=== PATIENT | female | born 1950 ===

== ENCOUNTER 2021-08-08 09:22 | Outpatient (REF) | payer MEDICARE, MEDICAID, SELFPAY ==
--- NOTE | ~2021-08-08 | XR_ITS ---
EXAMINATION: XR KNEE, RIGHT XR KNEE, LEFT CLINICAL INFORMATION: Pain. COMPARISON: Most recent bilateral knee radiographs dated 10/21/2019 TECHNIQUE: AP, tunnel, lateral, and sunrise views of the right and left knee. FINDINGS: RIGHT KNEE: Pldjqhqw-ik-hlsgzw medial compartment joint space narrowing. Tricompartmental marginal osteophytes. No fracture or dislocation. Medial and lateral compartment chondrocalcinosis. Small joint effusion. LEFT KNEE: Pgirbysq-gb-psnuho medial compartment joint space narrowing. Tricompartmental marginal osteophytes. No fracture or dislocation. Medial and lateral compartment chondrocalcinosis. Small joint effusion. XR/XR knee RT 3V IMPRESSION: RIGHT KNEE: Tricompartmental osteoarthritis, most prominent within the medial compartment. Medial and lateral compartment chondrocalcinosis. Findings are not significantly changed. LEFT KNEE: Tricompartmental osteoarthritis, most prominent within the medial compartment. Medial and lateral compartment chondrocalcinosis. Findings are not significantly changed.
--- NOTE | ~2021-08-08 | XR_ITS ---
EXAMINATION: XR KNEE, RIGHT XR KNEE, LEFT CLINICAL INFORMATION: Pain. COMPARISON: Most recent bilateral knee radiographs dated 10/21/2019 TECHNIQUE: AP, tunnel, lateral, and sunrise views of the right and left knee. FINDINGS: RIGHT KNEE: Mlweqjte-qe-fbbsol medial compartment joint space narrowing. Tricompartmental marginal osteophytes. No fracture or dislocation. Medial and lateral compartment chondrocalcinosis. Small joint effusion. LEFT KNEE: Phafcbxa-xx-bhwoys medial compartment joint space narrowing. Tricompartmental marginal osteophytes. No fracture or dislocation. Medial and lateral compartment chondrocalcinosis. Small joint effusion. XR/XR knee LT 4V IMPRESSION: RIGHT KNEE: Tricompartmental osteoarthritis, most prominent within the medial compartment. Medial and lateral compartment chondrocalcinosis. Findings are not significantly changed. LEFT KNEE: Tricompartmental osteoarthritis, most prominent within the medial compartment. Medial and lateral compartment chondrocalcinosis. Findings are not significantly changed.
--- NOTE | ~2021-08-08 | XR_ITS ---
EXAMINATION: XR LUMBOSACRAL SPINE CLINICAL INFORMATION: Pain low back. COMPARISON: MRI lumbar spine 09/24/2016. TECHNIQUE: Three views of the lumbosacral spine. FINDINGS: There is normal lumbar lordosis. The vertebral heights and alignment is normal. There is loss of L1-L2 and T12-L1 disc heights with mild ventral spondylosis. Mild spondylosis seen at other lumbar disc levels. No visible acute fracture, dislocation or subluxation seen. The SI joints are symmetrical and normal. The soft tissues are normal. XR/XR lumbar spine 2-3V IMPRESSION: Mild degenerative disc changes L1-L2 disc level with moderate spondylosis. In addition there is mild spondylosis at the rest of the lumbar disc levels. No acute fracture or lytic process seen.
--- NOTE | ~2021-08-08 | XR_ITS ---
EXAMINATION: XR CHEST CLINICAL INFORMATION: Lower back pain. Shortness of breath. COMPARISON: Chest radiograph dated 03/13/2018 TECHNIQUE: 2 views of the chest were obtained. FINDINGS: The lungs are clear. The cardiomediastinal silhouette is normal in size. There is no pleural effusion or pneumothorax. No acute osseous abnormality. XR/XR chest 2V IMPRESSION: No acute cardiopulmonary findings.
== END 2021-08-08 09:23 | disposition home or self-care (01) ==
LOC: HO.XRAY 09:22
PROVIDERS: PCP Internal Medicine Geriatric Medicine; Visit Provider Internal Medicine Geriatric Medicine
DX: M25.561 Pain in right knee (principal); M25.562 Pain in left knee; M54.5 Low back pain; R06.02 Shortness of breath
CPT/HCPCS: 71046; 72100; 73562; 73564

== ENCOUNTER 2022-03-01 15:01 | Outpatient (REF) | payer MEDICARE, MEDICAID, SELFPAY ==
[2022-03-01 15:30] LABS: COVID-19 Test Negative (Negative)
== END 2022-03-01 15:02 | disposition home or self-care (01) ==
LOC: HO.LAB 15:01
PROVIDERS: Visit Provider Internal Medicine
DX: Z20.822 Contact with and (suspected) exposure to COVID-19 (principal)
CPT/HCPCS: 87635; C9803

== ENCOUNTER 2022-05-23 11:02 | Outpatient (REF) | payer MEDICARE, MEDICAID, SELFPAY ==
--- NOTE | ~2022-05-23 | XR_ITS ---
EXAMINATION: XR KNEE, RIGHT XR KNEE, LEFT CLINICAL INFORMATION: Bilateral osteoarthritis. COMPARISON: Bilateral knee radiographs 08/08/2021. TECHNIQUE: Each knee is imaged in 4 views. There are total of 8 views. FINDINGS: Right: There is tricompartment osteoarthritis, greatest medial compartment with joint narrowing and mild secondary genu varus. No erosive change. There is chondrocalcinosis medial and lateral menisci. Small suprapatellar effusion is present. Hoffa's fat pad appears normal. There is mild spurring at the quadriceps insertion patella. No lateralization or tilting patella. No fracture, dislocation, or destructive process. Left: There is tricompartment osteoarthritis, greatest medial knee joint compartment with joint narrowing and mild secondary genu varus. Narrowing is greater on the right. There is chondrocalcinosis involving the medial and lateral menisci. No erosive change. Trace suprapatellar effusion. Hoffa's fat pad appears normal. No lateralization or tilting patella. No fracture, dislocation, destructive process. XR/XR knee RT 4V IMPRESSION: -Bilateral tricompartment osteoarthritis greatest medial compartments, slightly greater on right. -Mild secondary bilateral genu varus. Bilateral meniscal chondrocalcinosis. -Small effusion right; trace effusion left.
--- NOTE | ~2022-05-23 | XR_ITS ---
EXAMINATION: XR KNEE, RIGHT XR KNEE, LEFT CLINICAL INFORMATION: Bilateral osteoarthritis. COMPARISON: Bilateral knee radiographs 08/08/2021. TECHNIQUE: Each knee is imaged in 4 views. There are total of 8 views. FINDINGS: Right: There is tricompartment osteoarthritis, greatest medial compartment with joint narrowing and mild secondary genu varus. No erosive change. There is chondrocalcinosis medial and lateral menisci. Small suprapatellar effusion is present. Hoffa's fat pad appears normal. There is mild spurring at the quadriceps insertion patella. No lateralization or tilting patella. No fracture, dislocation, or destructive process. Left: There is tricompartment osteoarthritis, greatest medial knee joint compartment with joint narrowing and mild secondary genu varus. Narrowing is greater on the right. There is chondrocalcinosis involving the medial and lateral menisci. No erosive change. Trace suprapatellar effusion. Hoffa's fat pad appears normal. No lateralization or tilting patella. No fracture, dislocation, destructive process. XR/XR knee LT 4V IMPRESSION: -Bilateral tricompartment osteoarthritis greatest medial compartments, slightly greater on right. -Mild secondary bilateral genu varus. Bilateral meniscal chondrocalcinosis. -Small effusion right; trace effusion left.
== END 2022-05-23 11:03 | disposition home or self-care (01) ==
LOC: HO.XRAY 11:02
PROVIDERS: Absent Provider Internal Medicine Geriatric Medicine; PCP Internal Medicine Geriatric Medicine; Visit Provider Internal Medicine
DX: M17.0 Bilateral primary osteoarthritis of knee (principal)
CPT/HCPCS: 73564

== ENCOUNTER 2022-06-12 22:01 | Emergency (ER) | payer MEDICARE, MEDICAID, SELFPAY ==
--- NOTE | ~2022-06-12 | US_ITS ---
EXAMINATION: ULTRASOUND EXTREMITY NONVASCULAR LIMITED CLINICAL INFORMATION: Pain in popliteal fossa, question Lopez's cyst COMPARISON: None TECHNIQUE: Sonographic evaluation of the region of clinical concern in the popliteal fossa was performed with a high-frequency linear transducer. FINDINGS: Lopez's cyst is identified measuring 1.4 x 0.5 x 0.5 x 1.1 cm. No specific findings for rupture. Popliteal vein appears patent. US/US extremity nonvascular balderas IMPRESSION: Lopez's cyst measuring up to 1.4 cm.
--- NOTE | ~2022-06-12 | XR_ITS ---
EXAMINATION: XR KNEE, RIGHT CLINICAL INFORMATION: Pain, worse with flexion COMPARISON: 05/23/2022 TECHNIQUE: Four views of the right knee. FINDINGS: Osseous alignment is anatomic. There is moderate to severe joint space narrowing in the medial compartment with mild spurring. Chondrocalcinosis is noted. There is minimal spurring along the posterior patella. No acute fracture is seen. Trace joint effusion is present. XR/XR knee RT 3V IMPRESSION: No acute osseous findings. Trace joint effusion. Chronic appearing and degenerative changes, most severe in the medial compartment.
--- NOTE | ~2022-06-12 | XR_ITS ---
EXAMINATION: XR HIP, RIGHT CLINICAL INFORMATION: Right hip pain COMPARISON: None TECHNIQUE: Single view pelvis with 2 additional views of the right hip. FINDINGS: There is some very slight narrowing of the right hip joint. No significant osteophytes or fractures are seen. No bony destructive lesions. Similar but less marked changes are present in the left hip XR/XR hip RT w PEL1V IMPRESSION: Slight right hip joint narrowing
[2022-06-12 22:16] VITALS: BP 136/90; BP 168/72; PULSE 74; PULSE 96; RESP 20; TEMP 36.8; O2SAT 96; BMI 33.2
--- NOTE | 2022-06-12 23:02 | ED_ITS ---
HPI - Extremity Injury (Lower) General Chief Complaint: Extremity Injury, Lower Stated Complaint: Right leg pain Time Seen by Provider: 06/12/22 23:02 Source: patient and family (Daughter) Mode of arrival: EMS History of Present Illness HPI Narrative: 71-year-old female brought in by ambulance from home with complaints of right lower extremity pain that she describes as starting up around the hip and extending distally, worsened by walking. She denies any associated fever, chills, falls. Related Data Previous Rx's Medication Instructions Recorded oxycodone 5 mg tablet 5 mg PO Q8H PRN pain #4 tabs 06/13/22 Allergies Allergy/AdvReac Type Severity Reaction Status Date / Time ibuprofen [From MOTRIN] AdvReac Mild UPSET Unverified 08/17/20 15:37 STOMACH Review of Systems Review of Systems: Pertinent positives and negatives as stated in HPI 10 point review of systems is otherwise negative. PMFSH Past Medical History Source: nursing notes reviewed Social History Social History Alcohol intake: never Patient Tobacco Use Status: Former Tobacco user Smoked in Last 30 Days: No Use of substances other than those prescribed or required for medical reasons: No Advance Directives: No Advance Directives Information Provided: No Physical Exam Vital Signs: Vital Signs: Last Vital Signs Temp 97.2 F 06/13/22 00:51 Pulse 66 06/13/22 00:51 Resp 18 06/13/22 00:51 BP 154/77 H 06/13/22 00:51 Pulse Ox 96 06/13/22 00:51 O2 Del Method 06/12/22 23:34 BMI result Body Mass Index 33.2 VITAL SIGNS: Reviewed. GENERAL: Well developed, well nourished, in no acute distress. HEAD: Normocephalic/atraumatic EYES: PERRLA, EOMI EARS: Ext canals without abnormality OROPHARYNX: no oral lesions noted, posterior pharynx clear LUNGS: Normal breath sounds. No adventitious sounds or accessory muscle use. SpO2<96> CARDIOVASCULAR: Regular rate and rhythm without noted murmurs, no JVD or lower extremity edema. ABDOMEN: Soft, non-tender, non-distended with bowel sounds. MUSCULOSKELETAL: No tenderness, deformities, or effusions noted on gross inspection. EXTREMITIES: No cyanosis, clubbing or edema; RIGHT LOWER EXTREMITY: No obvious deformity, no erythema/induration/swelling noted at the hip or knee. SKIN: Inspection of the skin reveals no rashes NEUROLOGIC: Alert and oriented x 4. Strength and sensation to light touch were grossly intact x 4. Course Course Course Narrative: 71-year-old female with history and clinical presentation consistent with suspected arthritis of the joint on initial evaluation and patient was provided with combination analgesics and review of x-ray is negative for acute findings although does describe possible narrowing of the hip joint space. On re- evaluation patient denies any improvement with the medications and continues to be in significant pain but is now stating that it is behind the and right knee and she can not tolerate any flexion of the right knee. Knee x-ray ordered as well as ultrasound to evaluate for presence of Lopez cyst +/- rupture. Signed out to Dr Browning Discharge Plan Discharge Clinical Impression: Knee pain, right Patient Disposition: Still a Patient Instructions: Knee Pain (ED) Additional Instructions: 1. Reanudar todos los medicamentos caseros seg?n lo prescrito. 2. Recomendar Tylenol de venta dorene seg?n sea necesario para controlar el dolor. Considere la posibilidad de aplicar hielo sobre la piel no expuesta erick 10 a 15 minutos, de 3 a 4 veces al d?a. 3. Seguimiento con phan proveedor de atenci?n primaria para cesar reevaluaci?n. Regrese a la yazmin de emergencias si los s?ntomas empeoran. Prescriptions: New oxycodone 5 mg tablet 5 mg PO Q8H PRN (Reason: pain) Qty: 4 0RF Rx Instructions: Partial Fill upon patient request. Referrals: Name,MD Milton [Primary Care Provider] - Print Language: Luxembourgish
[2022-06-12] MEDS: Acetaminophen 325 MG TABLET 975 MG PO (23:21)
[2022-06-12] MEDS: Ketorolac Tromethamine 15 MG/ML VIAL IM (23:22)
[2022-06-12] MEDS: Lidocaine 4 % Patch ADH..PATCH 1 PATCH TRANSDERMA (23:23)
[2022-06-12 23:34] VITALS: BP 159/73; PULSE 67; RESP 18; TEMP 35.7; O2SAT 98
[2022-06-13 00:51] VITALS: BP 154/77; PULSE 66; RESP 18; TEMP 36.2; O2SAT 96
[2022-06-13] MEDS: oxyCODONE HCl Immed Release 5 MG TABLET PO (02:47)
--- NOTE | 2022-06-13 03:52 | PC.NURSE ---
pt right knee wrapped in suzy bandage. +CSM no c/o pain r/t wrap
--- NOTE | 2022-06-13 04:07 | PC.NURSE ---
pt unable to safely use crutches due to lack of strength/mobility. pt will be dc in wheelchair with her dtr. dtr states there are wheelchairs at her apartment and they can use that for transport rather than crutches
== END 2022-06-13 04:15 | disposition home or self-care (01) ==
PROVIDERS: Emergency Provider Internal Medicine; PCP Internal Medicine Geriatric Medicine
DX: M25.561 Pain in right knee (principal); Z87.891 Personal history of nicotine dependence
CPT/HCPCS: 73502; 73562; 76882; 96372; 99284; J1885

== ENCOUNTER 2022-07-08 07:48 | Outpatient (REF) | payer MEDICARE, MEDICAID, SELFPAY | END 2022-07-08 07:49 | disposition home or self-care (01) | LOC: HO.HOSX 07:48 | PROVIDERS: Visit Provider Physician Assistant | DX: Z13.89 Encounter for screening for other disorder (principal) ==

== ENCOUNTER 2023-02-04 11:00 | Outpatient (RCR) | payer MEDICARE, MEDICAID, SELFPAY | END 2023-03-19 14:18 | disposition home or self-care (01) | LOC: HO.PT 11:00 | PROVIDERS: Visit Provider Orthopaedic Surgery | DX: Z96.651 Presence of right artificial knee joint (principal) | CPT/HCPCS: 97110; 97161 ==

== ENCOUNTER 2023-03-27 10:19 | Outpatient (REF) | payer MEDICARE, MEDICAID, SELFPAY ==
--- NOTE | ~2023-03-27 | XR_ITS ---
EXAMINATION: XR LUMBOSACRAL SPINE CLINICAL INFORMATION: Severe lower back pain with left leg sciatica. COMPARISON: Radiographs dated 08/20/2021. TECHNIQUE: AP and lateral views of the lumbar spine and lateral view of the lumbosacral junction. FINDINGS: There is bony demineralization. There is a mild lumbar levoscoliosis. Vertebral body heights are normal. There is mild leftward disc space narrowing at L1-L2. The remaining disc spaces are relatively well-maintained. No acute fracture or spondylolisthesis is seen. There is multi-level marked lower thoracic and moderate lumbar spondylosis. The posterior elements are intact. There are aortoiliac atherosclerotic calcifications. XR/XR lumbar spine 2-3V IMPRESSION: 1. There is mild degenerative disc disease at L1-L2. 2. There is multi-level thoracolumbar spondylosis. 3. There is a mild lumbar levoscoliosis.
== END 2023-03-27 10:20 | disposition home or self-care (01) ==
LOC: HO.XRAY 10:19
PROVIDERS: PCP Internal Medicine Geriatric Medicine; Visit Provider Internal Medicine Geriatric Medicine
DX: M54.16 Radiculopathy, lumbar region (principal)
CPT/HCPCS: 72100

== ENCOUNTER 2023-05-08 14:39 | Outpatient (REF) | payer MEDICARE, MEDICAID, SELFPAY ==
--- NOTE | ~2023-05-08 | XR_ITS ---
EXAMINATION: XR CERVICAL SPINE CLINICAL INFORMATION: Neck pain COMPARISON: None available. TECHNIQUE: 6 views of the cervical spine were obtained. FINDINGS: No acute visible fracture or dislocation. Straightening of normal cervical curvature which may be secondary to patient positioning versus muscle spasm. Very slight grade 1 retrolisthesis of C5. Bilateral mild neuroforaminal narrowing greatest at C4-5 and C5. Moderate multilevel degenerative changes with large disc osteophyte complex along the C4-5 disc space, osteophyte formation, disc space narrowing, and facet arthropathy. Visualized dens is intact. Lateral masses are symmetric. Vertebral body heights and disc spaces are maintained. Prevertebral soft tissues are unremarkable. Posterior elements are intact. Visualized portions of the upper chest are unremarkable. XR/XR cervical spine 4V IMPRESSION: 1. No acute visible fracture or dislocation. 2. Straightening of normal cervical curvature which may be secondary to patient positioning versus muscle spasm. 3. Very slight grade 1 retrolisthesis of C5. 4. Bilateral mild neuroforaminal narrowing greatest at C4-5 and C5. 5. Moderate multilevel degenerative changes greatest at C4-C5.
== END 2023-05-08 14:40 | disposition home or self-care (01) ==
LOC: HO.HHCX 14:39
PROVIDERS: Visit Provider Internal Medicine
DX: M54.2 Cervicalgia (principal)
CPT/HCPCS: 72050

== ENCOUNTER 2023-05-14 08:26 | Outpatient (REF) | payer MEDICARE, MEDICAID, SELFPAY ==
--- NOTE | 2023-05-14 | EMG_ITS ---
Please see scanned EMG / Nerve Conduction Report. MTDD
== END 2023-05-14 08:27 | disposition home or self-care (01) ==
LOC: HO.NEURO 08:26
PROVIDERS: PCP Internal Medicine Geriatric Medicine; Visit Provider Internal Medicine
DX: M54.2 Cervicalgia (principal); R51.9 Headache, unspecified; M79.602 Pain in left arm
CPT/HCPCS: 95885; 95910

== ENCOUNTER 2023-05-29 08:53 | Outpatient (REF) | payer MEDICARE, MEDICAID, SELFPAY ==
--- NOTE | ~2023-05-29 | CT_ITS ---
EXAMINATION: CT head/brain wo IV con CLINICAL INFORMATION: Reason for Exam HEADACHE COMPARISON: None. TECHNIQUE: Contiguous axial imaging was performed from the skull base to vertex without intravenous contrast. Sagittal and coronal reformatted images were obtained. This CT examination was performed using dose optimization techniques as appropriate, variously including the following: * Automated exposure control * Adjustment of mA and/or kV according to patient size (this includes techniques or standardized protocols for targeted exams where dose is matched to indication/reason for exam; i.e. extremities or head) Use of iterative reconstruction technique DLP: 624.1 mGy-cm FINDINGS: No acute osseous or soft tissue abnormality. The mastoid air cells and visualized portions of the paranasal sinuses are well aerated. There is no evidence of acute intracranial hemorrhage or territorial infarction. No abnormal mass effect or midline shift is seen. Fitzpatrick to white matter differentiation is well preserved. No extra-axial fluid collections are identified. No hydrocephalus. No significant volume loss. Patchy periventricular and deep white matter hypoattenuation is consistent with mild small vessel ischemic changes. CT/CT head/brain wo IV con IMPRESSION: No acute intracranial abnormality including hemorrhage, mass effect, hydrocephalus, or acute territorial edematous infarction.
== END 2023-05-29 08:54 | disposition home or self-care (01) ==
LOC: HO.CT 08:53
PROVIDERS: PCP Internal Medicine Geriatric Medicine; Visit Provider Internal Medicine
DX: R51.9 Headache, unspecified (principal)
CPT/HCPCS: 70450

== ENCOUNTER 2023-06-09 08:11 | Outpatient (AMB) | payer MEDICARE, MEDICAID, SELFPAY ==
--- NOTE | 2023-06-09 08:22 | MHC.OFFVIS ---
Intake Vital Signs 06/09/23 08:23 Height 5 ft Weight 177 lb 4.026 oz BMI 34.6 BP 122/64 Blood Pressure Location Rt brachial Position Sitting Pulse 67 Pulse Source Pulse Oximeter Temp 97.2 F Temp Source Skin Pulse Oximetry (%) 97 Intake Visit Reasons: Headaches/elev lab ? Temporal Arteritis Intake Note: New pt presents today for consult. C/o pain in neck, arm and head. Pain started approx 2 months ago, saw PCP and she was given prednisone. Pain has since been alleviated. Electroplating Sales Representative Required: Yes Electroplating Sales Representative Name: Daughter Information Interpreted: non-clinical & clinical Accompanied by: Daughter Allergies ibuprofen [From MOTRIN] Adverse Reaction (Mild, Unverified 06/09/23 08:33) UPSET STOMACH Medication List - Last Reconciled 06/09/23 by Jhon Klein MD acetaminophen ER (Tylenol Arthritis Pain) 650 mg PO Q12H amlodipine 2.5 mg PO DAILY atorvastatin 20 mg PO DAILY bupropion HCl 150 mg PO QAM clonazepam 0.5 mg PO DAILY PRN docusate sodium 100 mg PO BID hydroxyzine pamoate 25 mg PO BID meloxicam 7.5 mg PO DAILY multivitamin 1 tab PO QAM prednisone 10 mg PO DAILY HPI HPI Comments History of Present Illness Details The patient presents with her daughter for evaluation of headache and elevated ESR. She notes that in early March she developed occipital headache that radiated around to the front. This was associated with neck pain, shoulder stiffness, morning stiffness, and overall fatigue. There maybe was some episodes of blurred vision. She was evaluated by her primary doctor and started on prednisone at 40 mg daily when the ESR came back at 122. Within a few days her stiffness subsided and within a week her headache was gone. She has not really noticed any visual disturbance. She is generally feeling better although was worried about weight gain and increased appetite that came with the prednisone. She has had lower back pain for years attributed to arthritis. She underwent a right total knee replacement back in December with a modest benefit. This was apparently done for for osteoarthritis. she remains on meloxicam at 7.5 mg daily. The prednisone has been tapered over the last few weeks down to 25 mg daily. She is taking the 10 mg tablets. [facility] Medical History (Updated 06/09/23 @ 14:35 by Jhon Klein MD) Arthralgia Chronic nonintractable headache ESR raised Temporal arteritis syndrome Social History Alcohol intake: never Patient Tobacco Use Status: Former Tobacco user Review of Systems Const Details: Some weight gain since starting the prednisone. Negative for appetite change, weight change, fever, chills, malaise and fatigue Eyes Details: Headache has resolved. Negative for vision change, dry eyes,headaches and dizziness ENT Details: Occasional tinnitus, a chronic problem. Negative for hearing change, oral ulcer, nose bleeds and oral dryness. Card Details: Negative chest pain, edema and syncope Resp Details: Negative for SOB, cough and wheezing GI Details: Some constipation as required her to take regular laxatives and stool softeners since she started the prednisone. Negative indigestion/heartburn, nausea, abdominal pain, bowel changes, diarrhea, and bloody stool Details: Negative for dysuria, hematuria, nocturia, decreased force/flow and genital discharge Skin/Breast Details: Some chronic hair thinning. She gets generalized pruritus, she has had it for years. She treats this with hydroxyzine with some benefit. Negative for rash, hives, Raynaud's symptoms, sun sensitivity, and skin cancer Neuro Details: Negative for epilepsy, palsy, stroke, changes in speech, tingling and weakness Psych Details: She is anxious about her disease. Negative for depression and stress Endo Details: Negative for polyuria and polydypsia Ras/Lymph Details: Negative for excessive bruising or bleeding. Physical Exam Vital Signs: Last Vital Signs Temp 97.2 F 06/09/23 08:23 Pulse 67 06/09/23 08:23 BP 122/64 06/09/23 08:23 Pulse Ox 97 06/09/23 08:23 BMI result Body Mass Index 34.6 APPEARANCE: Patient in no acute distress EYES no redness, pupils equal and reactive to light, eyelids normal. No temporal artery tenderness, redness or swelling. EARS: External ear normal, canal clear and tympanic membrane normal. NOSE/SINUS: Airflow through both nares, no nasal discharge, no bleeding THROAT: Oral mucosa moist, no ulcerations NECK: No thyromegaly or masses, no adenopathy, trachea midline. HEART: Regulrar rhythm, S1-S2 heard, no murmurs, rubs or gallops. LUNG: Clear to percussion and auscultation ABD: Normal bowel sounds, no organomegaly, masses or tenderness. EXTREMITIES: No edema, no calf tenderness, normal peripheral pulses. NEURO: Oriented and alert x3. No focal weakness. Reflexes symmetric. Gait normal. SKIN: No inflammatory or neoplastic lesions. Normal color and turgor JOINT EXAM:.?? Cervical Spine:.? Some decrease in range of motion without pain; no tenderness. Thoracic Spine:.? No scoliosis.? No tenderness on palpation. Lumbar Spine:.? Alignment normal.? Mild pain with extremes of motion. No tenderness. Chest Wall:.? No tenderness, swelling, increased warmth or erythema. Hands:.? Normal pain-free range of motion without tenderness, swelling, increased warmth or erythema. Able to make a full fist and has a good dental assistant strength. Wrists:.? Normal pain-free range of motion without tenderness, swelling, increased warmth or erythema. Elbows:. Normal pain-free range of motion without tenderness, swelling, increased warmth or erythema. Shoulders:.?? Full range of motion without pain. No tenderness, weakness, swelling, increased warmth or erythema. Hips:.? Full range of motion without pain. Hip bursa:.? No tenderness. Knees:.??Right: Well-healed anterior scar from her surgery. There is slight discomfort with extremes of flexion extension but no areas of tenderness, redness, swelling or fluctuance. Left: Mild patellofemoral crepitus and slight pain with extremes of normal motion with some minimal medial tenderness. No effusion, soft tissue swelling, increased warmth or erythema.? T Ankles:.? Normal pain-free range of motion without tenderness, swelling, increased warmth or erythema. Feet:.? Normal pain-free range of motion without tenderness, swelling, increased warmth or erythema. Tender points:.? No tenderness to digital palpation at the occiput, trapezius, second rib, lateral epicondyle, knees, greater trochanter and gluteal area bilaterally. ? Results Reviewed Results Reviewed: Lab tests: 05/08/2023: Hemoglobin 12.8, white count 9.9, ESR 122 May ESR 14 Assessment & Plan Assessment & Plan (1) On prednisone therapy: Code(s): Z79.52 - skilled nursing (current) use of systemic steroids (2) Post menopausal problems: Code(s): N95.9 - Unspecified menopausal and perimenopausal disorder (3) Cervical osteoarthritis: Code(s): M47.812 - Spondylosis without myelopathy or radiculopathy, cervical region (4) Temporal arteritis syndrome: Code(s): M31.6 - Other giant cell arteritis Plan Patient had new onset of headache and upper extremity arthralgias a couple of months ago. This was accompanied by a sed rate of 122. With prednisone treatment the symptoms improved. She no longer has a headache. She has some discomfort with range of motion of the neck from OA and some discomfort in her left knee from osteoarthritis but no signs currently of inflammatory arthritis. This again looks like giant cell arteritis. We will continue the prednisone for now but I would need to update her sed rate and CRP to advise her on the prednisone dosage. Also, even though the result is unlikely to be positive I think she needs to go for a temporal artery biopsy. We will try to arrange that. Because she is on prednisone for quite a while now it is reasonable to check a bone density. Likely she will need treatment with alendronate to prevent osteoporosis. Orders: Orders Comprehensive Met. Panel Today M31.6 - Other giant cell arteritis C Reactive Protein Today M31.6 - Other giant cell arteritis Vitamin D 25-OH (D2 and D3) Today M31.6 - Other giant cell arteritis Erythrocyte Sedimentation Rate Today M31.6 - Other giant cell arteritis Protein Electrophoresis, Serum Today M31.6 - Other giant cell arteritis XR DEXA axial skeleton Today N95.9 - Unspecified menopausal and perimenopausal disorder, Z79.52 - skilled nursing (current) use of systemic steroids Referrals Vascular Surgery Referral M31.6 - Other giant cell arteritis Coding Level of Care Code New Pt Level 3 (60170) Diagnoses On prednisone therapy Z79.52 Post menopausal problems N95.9 Cervical osteoarthritis M47.812 Temporal arteritis syndrome M31.6
[2023-06-09 08:23] VITALS: BP 122/64; PULSE 67; TEMP 36.2; O2SAT 97; BMI 34.6
== END 2023-06-09 10:04 | disposition home or self-care (01) ==
LOC: HO.RHE 08:11
PROVIDERS: PCP Internal Medicine Geriatric Medicine; Visit Provider Internal Medicine Rheumatology
DX: Z79.52 Long term (current) use of systemic steroids (principal); N95.9 Unspecified menopausal and perimenopausal disorder; M47.812 Spondylosis without myelopathy or radiculopathy, cervical region; M31.6 Other giant cell arteritis
CPT/HCPCS: 99203

== ENCOUNTER → 2023-06-09 08:11 | Outpatient (BNVA) | payer MEDICARE, MEDICAID, SELFPAY | PROVIDERS: PCP Internal Medicine Geriatric Medicine; Visit Provider Internal Medicine Rheumatology | DX: M31.6 Other giant cell arteritis (principal); M47.812 Spondylosis without myelopathy or radiculopathy, cervical region; N95.9 Unspecified menopausal and perimenopausal disorder; Z79.52 Long term (current) use of systemic steroids | CPT/HCPCS: 99202 ==

== ENCOUNTER 2023-06-19 10:29 | Outpatient (REF) | payer MEDICARE, MEDICAID, SELFPAY ==
[2023-06-19 13:09] LABS: Erythrocyte Sedimentation Rate 29 MM/HR (0-20)
[2023-06-19 14:17] LABS: Alanine Aminotransferase 19 U/L (0-31); Albumin Level 3.9 g/dL (3.5-5.0); Alkaline Phosphatase 98 U/L (39-117); Anion Gap 18 (12-20); Aspartate Amino Transferase 17 U/L (5-31); Bilirubin Total 0.6 mg/dL (0.0-1.0); Blood Urea Nitrogen 16 mg/dL (9-16); Calcium 9.8 mg/dL (8.4-10.2); Carbon Dioxide 22 mmol/L (22-29); Chloride 107 mmol/L (96-108); Estimated Glomerular Filt Rate > 60; Glucose Random 196 mg/dL (60-115); Potassium 4.5 mmol/L (3.3-5.1); Sodium 142 mmol/L (135-145); Total Protein 7.3 g/dL (6.5-8.0)
[2023-06-25 15:38] LABS: Vitamin D 25-OH, D2 <4 ng/mL; Vitamin D 25-OH, D3 10 ng/mL; Vitamin D 25-OH, Total 10 ng/mL (30-100)
[2023-06-26 18:43] LABS: Prot Elec - Alpha1 0.3 g/dL (0.2-0.3); Prot Elec - Alpha2 0.7 g/dL (0.5-0.9); Prot Elec - Beta 1 0.5 g/dL (0.4-0.6); Prot Elec - Beta 2 0.5 g/dL (0.2-0.5); Prot Elec - Gamma 0.8 g/dL (0.8-1.7); Prot Elec - Total Protein 6.7 g/dL (6.1-8.1)
== END 2023-06-19 10:30 | disposition home or self-care (01) ==
LOC: HO.LAB 10:29
PROVIDERS: PCP Internal Medicine Geriatric Medicine; Visit Provider Internal Medicine Rheumatology
DX: M31.6 Other giant cell arteritis (principal); E55.9 Vitamin D deficiency, unspecified
CPT/HCPCS: 36415; 80053; 82306; 84165; 85652; 86140

== ENCOUNTER 2023-06-26 10:05 | Outpatient (AMB) | payer MEDICARE, MEDICAID, SELFPAY ==
[2023-06-26 10:15] VITALS: BMI 34.6
--- NOTE | 2023-06-26 10:15 | A.OFFVIS_ITS ---
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 Giant Cell Arteritis Intake Note: Patient is here for a SENIOR OPERATIONS MANAGER referral from rheumatology for Giant cell arteritis, pt still c/o neck pain. patient stated rheumatology had ordered labs and they noticed an inflammation. patient stated she ran out of prednisone 2 weeks ago and needs a refill Fabric Stretcher Required: Yes Fabric Stretcher Name: Kelly VIZCAINO Allergies ibuprofen [From MOTRIN] Adverse Reaction (Mild, Verified 06/26/23 10:19) UPSET STOMACH percocet Allergy (Intermediate, Uncoded 06/26/23 10:20) Itching HPI SENIOR OPERATIONS MANAGER/Rheum. Giant Cell Arteritis HPI Details Very pleasant 72-year-old female presents for evaluation regarding temporal headache. She was actually seen by Rheumatology. She developed some occipital headaches dating back to March. She was worked up by Rheumatology in noted to have any ESR as high as 122. She was started on prednisone. She actually was scheduled much earlier for visit but had self canceled and after repeated phone call she now presents for follow-up. At the current time she continues to note this left-sided headache. No vision loss noted. Now for vascular evaluation. [facility] Medical History Arthralgia Chronic nonintractable headache ESR raised Temporal arteritis syndrome Social History Alcohol intake: never Patient Tobacco Use Status: Former Tobacco user Review of Systems Const All systems reviewed & are unremarkable except as noted in HPI and below Reports no additional complaints ENT Reports Normal hearing present Card Denies chest pain, Denies chest pain at rest, Denies chest pain with activity and Denies pedal edema Resp Denies cough GI Denies abdominal pain Musc Denies abnormal gait, Denies muscle cramps and Denies radiating pain into limb Skin/Breast Denies skin ulcer and Denies wounds Neuro Reports Normal hearing present and Denies abnormal gait Psych Reports no additional complaints Physical Exam Vital Signs: BMI result Body Mass Index 34.6 Const General: cooperative, healthy appearing and comfortable Orientation/consciousness: oriented to person, oriented to place and oriented to time HEENT Head: Yes normal to inspection Neck Neck: Yes normal visual inspection Carotids: no bruits Chest Chest palpation & inspection: normal inspection of the chest Resp Effort & Inspection: normal respiratory effort and able to speak in complete sentences Auscultation: clear to auscultation bilaterally, no crackles, no rales, no rhonchi and no wheezes Cardio Rate: regular rate Rhythm: regular rhythm Heart sounds: S1 normal heart sound present and S2 normal heart sound present Bruits: no carotid bruits Peripheral pulses: Peripheral pulses 2+ throughout GI Inspection: Yes normal to inspection Skin Wounds: no wounds Hair: normal Neuro General: oriented to person, oriented to place and oriented to time Cranial nerves: Yes CN's II-XII intact bilaterally and Yes Normal hearing present Cognition (Neuro): normal cognition Motor exam (neuro): 5/5 motor strength present throughout Extrem Other: venous exam: No significant superficial varicosities or spider telangiectasias, minimal edema General: No clubbing, No cyanosis and No edema Psych Appearance: grossly normal Mental Status: mental status grossly normal Speech and movement: Normal speech and movement present Results Reviewed Results Reviewed: ESR 29 CRP 4.6 Assessment & Plan Assessment & Plan (1) Giant cell arteritis: Code(s): M31.6 - Other giant cell arteritis Plan: In short there is concern for giant cell arteritis. She she has been on prednisone. She will require left temporal artery biopsy. Risks benefits complications of the procedure were discussed in detail with the patient and the patient's daughter at bedside. They are in agreement and would like to move forward. We will schedule as soon as possible. Thank you for allowing us to participate in her care. Coding Level of Care Code New Pt Level 4 (06396) Diagnoses Giant cell arteritis M31.6
== END 2023-06-26 10:54 | disposition home or self-care (01) ==
PROVIDERS: PCP Internal Medicine Geriatric Medicine; Visit Provider Surgery Vascular Surgery
DX: M31.6 Other giant cell arteritis (principal); Z79.52 Long term (current) use of systemic steroids
CPT/HCPCS: 99203

== ENCOUNTER → 2023-06-26 10:05 | Outpatient (BNVA) | payer MEDICARE, MEDICAID, SELFPAY | PROVIDERS: PCP Internal Medicine Geriatric Medicine; Visit Provider Surgery Vascular Surgery ==

== ENCOUNTER 2023-06-27 10:42 | Day surgery (SDC) | payer MEDICARE, MEDICAID, SELFPAY ==
[2023-06-27 11:21] VITALS: BMI 34.6
[2023-06-27 11:43] VITALS: BP 137/65; PULSE 98; RESP 16; TEMP 36.6; O2SAT 97
--- NOTE | 2023-06-27 12:47 | HO.ANESPROP2 ---
HPI - Anesthesia Eval Consult details Narrative: Temporal artery bx PMFSH Active Problems Active Problems: All Active Problems (Updated 06/27/23 @ 11:19 by Katia Mendosa) Cervical osteoarthritis (Acute) Post menopausal problems (Acute) On prednisone therapy (Acute) Giant cell arteritis (Acute) Temporal arteritis syndrome (Acute) Past Medical History Medical History (Updated 06/27/23 @ 11:19 by Katia Mendosa) Arthralgia Chronic nonintractable headache ESR raised Hypertension Temporal arteritis syndrome Family History Family history of problems with anesthesia: No Surgical History Surgical History (Updated 06/27/23 @ 12:01 by Katia Mendosa) History of cataract extraction History of uterine suspension procedure Total knee replacement status Tubal ligation status History of Problems with Anesthesia: No Social History Social History Alcohol intake: never Patient Tobacco Use Status: Former Tobacco user Quit Date: 1989 Smoked in Last 30 Days: No Use of substances other than those prescribed or required for medical reasons: No Are you DNR?: No Advance Directives: No Advance Directives Information Provided: No Meds Allergies Allergy/AdvReac Type Severity Reaction Status Date / Time ibuprofen [From MOTRIN] AdvReac Mild UPSET Verified 06/27/23 11:20 STOMACH percocet Allergy Intermediate Itching Uncoded 06/27/23 11:20 Home Medications Medication Instructions Recorded Confirmed Last Taken Type acetaminophen 650 mg 650 mg PO Q12H 06/06/23 06/27/23 Unknown History tablet,extended release (Tylenol Arthritis Pain) amlodipine 2.5 mg tablet 2.5 mg PO DAILY 06/06/23 06/27/23 Unknown History atorvastatin 20 mg tablet 20 mg PO DAILY 06/06/23 06/27/23 Unknown History clonazepam 0.5 mg tablet 0.5 mg PO DAILY PRN anxiety attack 06/06/23 06/27/23 Unknown History docusate sodium 100 mg capsule 100 mg PO BID 06/06/23 06/27/23 Unknown History hydroxyzine pamoate 25 mg capsule 25 mg PO BID 06/06/23 06/27/23 Unknown History meloxicam 7.5 mg tablet 7.5 mg PO DAILY 06/06/23 06/27/23 06/25/23 History multivitamin 1 tab PO QAM 06/06/23 06/27/23 Unknown History Exam Exam Date and Time: June 27, 2023 1247 Height,Weight and Vital Signs: Height 5 ft Weight 80.286 kg Last Vital Signs Temp 97.9 F 06/27/23 11:43 Pulse 98 06/27/23 11:43 Resp 16 06/27/23 11:43 BP 137/65 06/27/23 11:43 Pulse Ox 97 06/27/23 11:43 O2 Del Method Room Air 06/27/23 11:43 Airway Mallampati Class: II TM Dist: >3cm Neck ROM: Limited Heart: rrr Lungs: cta Assessment and Plan Assessment Anesthesia Assessment: Anesthesia Plan Discussed and Chart Reviewed Final Anesthetic Review Family History of Problems with Anesthesia: No History of Problems with Anesthesia: No NPO: Yes ASA Class: II Final Preanesthetic Review: No Changes in Pt Med Stat, Meds/Allgs Chart Reviewed, Consent Obtained/Reviewed and Anes Risks/Benef Reviewed Patient Risk: Intermediate Procedure Risk: Low Anesthetic Plan Anesthetic Plan: MAC: and Agree w/ Assess. and Plan Disposition: Standard PACU
--- NOTE | 2023-06-27 14:08 | P.OP_ITS ---
Operative Note Operative Note Date of Service: 06/27/23 Narrative: Operative note by [facility] Preoperative diagnosis: giant cell arteritis Postoperative diagnosis: same Procedure: left temporal artery biopsy Surgeon:Omer Rey M.D. Entertainment Production Professional: cristiano Anesthesia: local with sedation Specimens: 1 Drains: none Estimated blood loss: 10 mL Indications: very pleasant 72-year-old female with history of left temporal headaches an elevated ESR CRP presents for temporal artery biopsy. The patient has signed the informed consent after reviewing risks, complications, benefits, and alternatives previously discussed with the patient. The patient was given the opportunity to ask any additional questions or voice any concerns. All questions were answered to the patient's satisfaction. Procedure in detail: Patient was brought to the operating room prior to which a time-out was called for patient identification site verification. Left temporal region was prepped and draped in standard surgical fashion. Approximately a 5 cm incision was made just anterior to the year. Taken down to the temporal artery. This was dissected clear. Proximal and distal control was obtained with 3-0 silk tie. Specimen was removed. Electrocautery was used to obtain hemostasis. Wound was then thoroughly irrigated out. Deep layer was reapproximated using 3-0 poly Sorb and superficial layer was closed using a running subcuticular 4 0 Polysorb. Exofin was used as a sterile dressing. At the end the case sponge instrument counts were correct. This note is constructed using voice recognition software. While every effort has been made to ensure accuracy, head paper tester errors may have been included. Thank you for allowing me to participate in the care of your patient. Yours sincerely, Omer Rey MD, FACS, R.P.V.I.
[2023-06-27 14:11] VITALS: BP 114/66; PULSE 85; RESP 16; TEMP 36.6; O2SAT 93
[2023-06-27 14:26] VITALS: BP 130/72; PULSE 84; RESP 15; TEMP 36.1; O2SAT 98
== END 2023-06-27 15:27 | disposition home or self-care (01) ==
PROVIDERS: PCP Internal Medicine Geriatric Medicine; Visit Provider Surgery Vascular Surgery
PROC: (CPT 37609; principal; 2023-06-27 12:30)
DX: M31.6 Other giant cell arteritis (principal); R70.0 Elevated erythrocyte sedimentation rate; R79.82 Elevated C-reactive protein (CRP); G89.29 Other chronic pain; M25.50 Pain in unspecified joint; Z79.899 Other long term (current) drug therapy; Z88.8 Allergy status to other drugs, medicaments and biological substances; Z87.891 Personal history of nicotine dependence
CPT/HCPCS: 37609; 88305; J0690; J2795; J3010

== ENCOUNTER → 2023-06-27 10:42 | Outpatient (BNV) | payer MEDICARE, MEDICAID, SELFPAY | PROVIDERS: PCP Internal Medicine Geriatric Medicine; Visit Provider Surgery Vascular Surgery | DX: M31.6 Other giant cell arteritis (principal) | CPT/HCPCS: 37609; 99152 ==

== ENCOUNTER 2023-07-21 10:49 | Outpatient (AMB) | payer MEDICARE, MEDICAID, SELFPAY ==
--- NOTE | 2023-07-21 10:51 | MHC.OFFVIS ---
Intake Vital Signs 07/21/23 10:53 Height 5 ft Weight 179 lb 7.3 oz BMI 35.0 BP 122/62 Blood Pressure Location Rt brachial Position Sitting Pulse 67 Pulse Source Pulse Oximeter Temp 97 F Temp Source Skin Pulse Oximetry (%) 96 Oxygen Delivery Method Room Air Intake Visit Reasons: Temporal Arteritis Intake Note: Here for temporal arteritis follow up. 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 Her daughter is here adding additional history and helping us communicate. The patient still has some mild discomfort in the left yarsanism region and the top of her head. She says this is only occasional and considerably better than her originally presenting headache. She has had no fluctuating visual symptoms or jaw claudication. She did undergo a temporal artery biopsy but it was negative. She is presently at 25 mg daily prednisone. She is complaining of some tinnitus in that left ear. This seemed to come on just before or around the time of her temporal artery biopsy. Associated with that is a feeling of intermittent vertigo. She has not had any falls, nausea, or vomiting. She gets occasional pain in the shoulders and the right knee where she had a knee replacement. She is taking meloxicam 7.5 mg daily and occasionally acetaminophen 650 twice a day. [facility] Medical History (Updated 07/21/23 @ 11:50 by Jhon Klein MD) Arthralgia Chronic nonintractable headache ESR raised Hypertension Temporal arteritis syndrome Surgical History (Updated 07/21/23 @ 11:12 by FABRICIO Alejandro) History of biopsy History of cataract extraction History of total right knee replacement History of uterine suspension procedure Total knee replacement status Tubal ligation status Social History Alcohol intake: never Patient Tobacco Use Status: Former Tobacco user Quit Date: 1989 Review of Systems Const Details: Negative for appetite change, weight change, fever, chills, malaise and fatigue Eyes Details: Occasional left-sided headache. Vertigo as noted above. Negative for vision change, dry eyes ENT Details: Negative for hearing change, tinnitus, oral ulcer, nose bleeds and oral dryness. Card Details: Negative chest pain, edema and syncope Resp Details: Negative for SOB, cough and wheezing GI Details: Negative indigestion/heartburn, nausea, abdominal pain, bowel changes, diarrhea, constipation and bloody stool. Skin/Breast Details: Negative for itching, rash, hives, Raynaud's symptoms, sun sensitivity, and skin cancer Neuro Details: Negative for epilepsy, palsy, stroke, changes in speech, tingling and weakness Psych Details: Anxiety symptoms are controlled with current treatment. She has run out of the clonazepam for now. Endo Details: Negative for polyuria and polydypsia Ras/Lymph Details: Negative for excessive bruising or bleeding. Physical Exam Vital Signs: Last Vital Signs Temp 97 F 07/21/23 10:53 Pulse 67 07/21/23 10:53 BP 122/62 07/21/23 10:53 Pulse Ox 96 07/21/23 10:53 Oxygen Delivery Method Room Air 07/21/23 10:53 BMI result Body Mass Index 35.0 APPEARANCE: Patient in no acute distress EYES no redness, pupils equal and reactive to light, eyelids normal.? No temporal artery tenderness, redness or swelling. There is a well-healed incision anterior to the ear where she had the biopsy. There is no signs of fluctuance, redness, or tenderness along the incision. EARS:? External ear normal, canal clear and tympanic membrane normal. I do not appreciate any hearing loss. NOSE/SINUS:? Airflow through both nares, no nasal discharge, no bleeding THROAT:? Oral mucosa moist, no ulcerations NECK:? No thyromegaly or masses, no adenopathy, trachea midline. HEART:? Regulrar rhythm, S1-S2 heard, no murmurs, rubs or gallops. LUNG:? Clear to percussion and auscultation ABD:? Normal bowel sounds, no organomegaly, masses or tenderness. EXTREMITIES:? No edema, no calf tenderness, normal peripheral pulses. NEURO:? Oriented and alert x3.? No focal weakness.? Reflexes symmetric.? Gait normal. SKIN:? No inflammatory or neoplastic lesions.? Normal color and turgor JOINT EXAM:.?? Cervical Spine:.? Some decrease in range of motion without pain; no tenderness. Thoracic Spine:.? No scoliosis.? No tenderness on palpation. Lumbar Spine:.? Alignment normal.? Mild pain with extremes of motion.? No tenderness. Chest Wall:.? No tenderness, swelling, increased warmth or erythema. Hands:.? Normal pain-free range of motion without tenderness, swelling, increased warmth or erythema. Able to make a full fist and has a good hand tapper strength. Wrists:.? Normal pain-free range of motion without tenderness, swelling, increased warmth or erythema. Elbows:. Normal pain-free range of motion without tenderness, swelling, increased warmth or erythema. Shoulders:.?? Full range of motion without pain. No tenderness, weakness, swelling, increased warmth or erythema. Hips:.? Full range of motion without pain. Hip bursa:.? No tenderness. Knees:??Right:? Well-healed anterior scar from her surgery.? There is slight discomfort with extremes of flexion extension but no areas of tenderness, redness, swelling or fluctuance.? Left:? Mild patellofemoral crepitus and slight pain with extremes of normal motion with some minimal medial tenderness.? No effusion, soft tissue swelling, increased warmth or erythema.? Ankles:? Normal pain-free range of motion without tenderness, swelling, increased warmth or erythema. Feet:? Normal pain-free range of motion without tenderness, swelling, increased warmth or erythema. Tender points:? No tenderness to digital palpation at the occiput, trapezius, second rib, lateral epicondyle, knees, greater trochanter and gluteal area bilaterally. Results Reviewed Results Reviewed: [facility] Laboratory Tests 06/19/23 06/19/23 10:42 10:42 ESR 29 H C-Reactive Protein 4.[address] [place] [address] CT Scan Report Signed Patient: Cindy May MR#: [id number] : 1950 Age/Sex: 72 / F ADM Date: 05/29/[address]: Joshua Jo MD Ordering Physician: Joshua Jo MD Date of Service: 06/29/23 Procedure(s): CT head/brain wo IV con Accession Number(s): [id number] cc: Joshua Jo MD~ EXAMINATION: ?CT head/brain wo IV con CLINICAL INFORMATION: Reason for Exam HEADACHE COMPARISON: None. TECHNIQUE: Contiguous axial imaging was performed from the skull base to vertex without intravenous contrast. Sagittal and coronal reformatted images were obtained. This CT examination was performed using dose optimization techniques as appropriate, variously including the following: *? Automated exposure control *? Adjustment of mA and/or kV according to patient size (this includes techniques or standardized protocols for targeted exams where dose is matched to indication/reason for exam; i.e. extremities or head) Use of iterative reconstruction technique DLP: 624.1 mGy-cm FINDINGS: No acute osseous or soft tissue abnormality. The mastoid air cells and visualized portions of the paranasal sinuses are well aerated. There is no evidence of acute intracranial hemorrhage or territorial infarction. No abnormal mass effect or midline shift is seen. Fitzpatrick to white matter differentiation is well preserved. No extra-axial fluid collections are identified. No hydrocephalus. No significant volume loss. Patchy periventricular and deep white matter hypoattenuation is consistent with mild small vessel ischemic changes. ? CT/CT head/brain wo IV con IMPRESSION: ? No acute intracranial abnormality including hemorrhage, mass effect, hydrocephalus, or acute territorial edematous infarction. 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 Better on prednisone; TA bx negaitve 05/2023 Code(s): M31.6 - Other giant cell arteritis Plan She says she has improved from prior to treatment with the prednisone. However there still is some dull headache at times and she has developed apparently new symptoms of tinnitus and vertigo. This is on the same side as her surgery so she is relating it to the surgery but I told her I do not think how that could be the case. The ear canal looks normal. With the negative temporal artery biopsy, one always wonders whether she actually does have GCA. Temporal artery biopsies course are known for the tendency to miss the scattered diagnostic lesions from along the temporal artery. She does not seem to have any large vessel involvement elsewhere with GCA. She did have response to prednisone so I think we are obligated to continue the prednisone but taper it further depending on her symptoms. The presence of these new symptoms of tinnitus and vertigo raises the question whether she could have some 8th nerve pathology such as an acoustic neuroma. We will decide if we can get MRI of the brain to look for an acoustic neuroma. The daughter requests some sedation so the patient can tolerate the MRI. The patient does have an underlying anxiety disorder and has been on clonazepam in the past so we will give her prescription for 0.5 mg to take an hour before the MRI procedure. We will request the MRI and will probablyl need prior authorization from insurance. We will check acute phase reactants and CBC today. We will get back to her with probably further instructions on tapering the prednisone. Follow-up in 4 to 5 weeks is recommended. Orders: Orders Creatinine Today M31.6 - Other giant cell arteritis C Reactive Protein Today M31.6 - Other giant cell arteritis Complete Blood Count Auto Diff Today M31.6 - Other giant cell arteritis Erythrocyte Sedimentation Rate Today M31.6 - Other giant cell arteritis MR brain wo/w con w neuroquant Today H93.12 - Tinnitus, left ear, R42 - Dizziness and giddiness, R51.9 - Headache, unspecified Referrals Ear/Nose/Throat Referral H93.12 - Tinnitus, left ear, R42 - Dizziness and giddiness, R51.9 - Headache, unspecified Medications: New clonazepam before proceedure 0.5 mg PO ONCE 1 tab 0RF F41.9 - Anxiety disorder, unspecified Coding Level of Care Code Est Pt Level 4 (41939) Diagnoses On prednisone therapy Z79.52 Vertigo R42 Headache R51.9 Tinnitus of left ear H93.12 Anxiety F41.9 Temporal arteritis syndrome M31.6
[2023-07-21 10:53] VITALS: BP 122/62; PULSE 67; TEMP 36.1; O2SAT 96; BMI 35.0
== END 2023-07-21 11:53 | disposition home or self-care (01) ==
PROVIDERS: PCP Internal Medicine Geriatric Medicine; Visit Provider Internal Medicine Rheumatology
DX: Z79.52 Long term (current) use of systemic steroids (principal); R42 Dizziness and giddiness; R51.9 Headache, unspecified; H93.12 Tinnitus, left ear; F41.9 Anxiety disorder, unspecified; M31.6 Other giant cell arteritis
CPT/HCPCS: 99214

== ENCOUNTER → 2023-07-21 10:49 | Outpatient (BNVA) | payer MEDICARE, SELFPAY | PROVIDERS: PCP Internal Medicine Geriatric Medicine; Visit Provider Internal Medicine Rheumatology ==

== ENCOUNTER 2023-07-21 12:13 | Outpatient (REF) | payer MEDICARE, MEDICAID, SELFPAY ==
[2023-07-21 13:36] LABS: MANUAL DIFF FLAG NO
[2023-07-21 13:56] LABS: Basophils Absolute Auto 0.1 X10*3/uL (0.0-0.2); Basophils Percent Auto 0.5 % (0-2); Eosinophils Absolute Auto 0.1 X10*3/uL (0.0-0.4); Eosinophils Percent Auto 0.4 % (0-4); Hematocrit 42.5 % (37.0-47.0); Hemoglobin 13.7 g/dl (12.0-16.0); Imm Gran Pct Auto 0.7 % (0.0-0.4); Lymphocytes Absolute Auto 1.5 X10*3/uL (1.2-4.9); Lymphocytes Percent Auto 10.6 % (20-40); Mean Corpuscular HGB Conc 32.2 g/dl (31.0-35.0); Mean Corpuscular Hemoglobin 29.5 pg (27.0-33.0); Mean Corpuscular Volume 91.4 fL (80.0-98.0); Mean Platelet Volume 9.9 fL (9.4-12.3); Monocytes Absolute Auto 0.6 X10*3/uL (0.1-1.2); Monocytes Percent Auto 4.6 % (2-11); Neutrophils Absolute Auto 11.6 x10*3/uL (2.0-8.3); Neutrophils Percent Auto 83.2 % (45-73); Platelet Count 390 X10*3/uL (160-400); Red Blood Count 4.65 X10*6/uL (4.20-5.50); Red Cell Distribution Width 13.7 % (11.0-16.0)
[2023-07-21 14:24] LABS: C Reactive Protein 0.94 mg/dL (< or = 0.50); Estimated Glomerular Filt Rate > 60
[2023-07-21 14:32] LABS: Erythrocyte Sedimentation Rate 18 MM/HR (0-20)
== END 2023-07-21 12:14 | disposition home or self-care (01) ==
LOC: HO.10HDL 12:13
PROVIDERS: Visit Provider Internal Medicine Rheumatology
DX: M31.6 Other giant cell arteritis (principal); R42 Dizziness and giddiness; R51.9 Headache, unspecified; H93.12 Tinnitus, left ear; F41.9 Anxiety disorder, unspecified; Z79.52 Long term (current) use of systemic steroids
CPT/HCPCS: 36415; 82565; 85025; 85652; 86140; 99212

== ENCOUNTER 2023-08-20 11:11 | Outpatient (REF) | payer MEDICARE, MEDICAID, SELFPAY ==
[2023-08-20 13:53] LABS: C Reactive Protein 2.35 mg/dL (< or = 0.50)
[2023-08-20 14:08] LABS: Erythrocyte Sedimentation Rate 27 MM/HR (0-20)
== END 2023-08-20 11:12 | disposition home or self-care (01) ==
LOC: HO.10HDL 11:11
PROVIDERS: Visit Provider Internal Medicine Rheumatology
DX: M31.6 Other giant cell arteritis (principal)
CPT/HCPCS: 36415; 85652; 86140

== ENCOUNTER 2023-08-25 09:15 | Outpatient (AMB) | payer MEDICARE, MEDICAID, SELFPAY ==
--- NOTE | 2023-08-25 09:17 | MHC.OFFVIS ---
Intake Vital Signs 08/25/23 09:26 Height 5 ft Weight 185 lb 6.54 oz BMI 36.2 BP 104/72 Blood Pressure Location Lt brachial Position Sitting Pulse 84 Pulse Source Pulse Oximeter Temp 97.3 F Temp Source Skin Pulse Oximetry (%) 97 Oxygen Delivery Method Room Air Intake Visit Reasons: Temporal Arteritis Intake Note: Patient presents today for Temporal Arteritis follow up. c/o buzzing sound on ears s/p temporal bx. Patient also stating she would like to hold off on any procedures due to billing cost. 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 Network Architect Language: Electrotype Finisher Name: Felicia [id number] Information Interpreted: clinical only Accompanied by: Self / Same As Patient Allergies ibuprofen [From MOTRIN] Adverse Reaction (Mild, Verified 08/25/23 09:25) UPSET STOMACH percocet Allergy (Intermediate, Uncoded 08/25/23 09:25) Itching Medication List - Last Reconciled 08/25/23 by Jhon Klein MD acetaminophen ER (Tylenol Arthritis Pain) 650 mg PO Q12H amlodipine 2.5 mg PO DAILY atorvastatin 20 mg PO DAILY cholecalciferol (vitamin D3) 50 mcg PO DAILY clonazepam 0.5 mg PO ONCE docusate sodium 100 mg PO BID hydroxyzine pamoate 25 mg PO BID multivitamin 1 tab PO QAM prednisone 25 mg (2.5 x 10 mg) PO DAILY HPI HPI Comments History of Present Illness Details The patient returns for evaluation of her presumed giant cell arteritis. We are using the iPad translating service to facilitate the visit. She is down to 10 mg daily of prednisone. She denies any headache at this time. She seems to have still tinnitus more on the left side than on the right side currently. She denies any hearing loss. I had ordered a brain MRI to investigate the possibility of an acoustic neuroma considering the ongoing headache and tinnitus. It is now scheduled for next month. She says she does not want any more tests however. She is still paying for the temporal artery biopsy. It is unclear why she is being charged since she says that she has both [employer] and Medicare. She has some pain in the knees, worse when she tries to stand up or walk. She is wearing some elastic knee braces. She is no longer on meloxicam. She does use [id number] acetaminophen. [facility] Medical History (Updated 08/25/23 @ 09:37 by Jhon Klein MD) Hypertension ESR raised Temporal arteritis syndrome Chronic nonintractable headache Arthralgia Surgical History History of biopsy History of total right knee replacement Total knee replacement status Tubal ligation status History of uterine suspension procedure History of cataract extraction Social History Alcohol intake: never Patient Tobacco Use Status: Former Tobacco user Quit Date: 1989 Review of Systems Const Details: Negative for appetite change, weight change, fever, chills, malaise and fatigue Eyes Details: Negative for vision change, dry eyes,headaches and dizziness ENT Details: Tenderness as noted above. Negative for hearing change, oral ulcer, nose bleeds and oral dryness. Card Details: Negative chest pain, edema and syncope Resp Details: Negative for SOB, cough and wheezing GI Details: Negative indigestion/heartburn, nausea, abdominal pain, bowel changes, diarrhea, constipation and bloody stool. Neuro Details: Negative for epilepsy, palsy, stroke, changes in speech, tingling and weakness Endo Details: Negative for polyuria and polydypsia Ras/Lymph Details: Negative for excessive bruising or bleeding. Physical Exam Vital Signs: Last Vital Signs Temp 97.3 F 08/25/23 09:26 Pulse 84 08/25/23 09:26 BP 104/72 08/25/23 09:26 Pulse Ox 97 08/25/23 09:26 Oxygen Delivery Method Room Air 08/25/23 09:26 BMI result Body Mass Index 36.2 APPEARANCE: Patient in no acute distress EYES no redness, pupils equal and reactive to light, eyelids normal.? No temporal artery tenderness, redness or swelling. There is a well-healed incision anterior to the ear where she had the biopsy. There is no signs of fluctuance, redness, or tenderness along the incision. EARS:? External ear normal, canal clear and tympanic membrane normal. I do not appreciate any hearing loss. NOSE/SINUS:? Airflow through both nares, no nasal discharge, no bleeding THROAT:? Oral mucosa moist, no ulcerations NECK:? No thyromegaly or masses, no adenopathy, trachea midline. HEART:? Regulrar rhythm, S1-S2 heard, no murmurs, rubs or gallops. LUNG:? Clear to percussion and auscultation ABD:? Normal bowel sounds, no organomegaly, masses or tenderness. EXTREMITIES:? No edema, no calf tenderness, normal peripheral pulses. NEURO:? Oriented and alert x3.? No focal weakness.? Reflexes symmetric.? Gait normal. SKIN:? No inflammatory or neoplastic lesions.? Normal color and turgor JOINT EXAM:.?? Cervical Spine:.? Some decrease in range of motion without pain; no tenderness. Thoracic Spine:.? No scoliosis.? No tenderness on palpation. Lumbar Spine:.? Alignment normal.? Mild pain with extremes of motion.? No tenderness. Chest Wall:.? No tenderness, swelling, increased warmth or erythema. Hands:.? Normal pain-free range of motion without tenderness, swelling, increased warmth or erythema. Able to make a full fist and has a good manager telecom strength. Wrists:.? Normal pain-free range of motion without tenderness, swelling, increased warmth or erythema. Elbows:. Normal pain-free range of motion without tenderness, swelling, increased warmth or erythema. Shoulders:.?? Full range of motion without pain. No tenderness, weakness, swelling, increased warmth or erythema. Hips:.? Full range of motion without pain. Hip bursa:.? No tenderness. Knees:??Right:? Well-healed anterior scar from her surgery.? There is slight discomfort with extremes of flexion extension but no areas of tenderness, redness, swelling or fluctuance.? Left:? Mild patellofemoral crepitus and slight pain with extremes of normal motion with some minimal medial tenderness.? No effusion, soft tissue swelling, increased warmth or erythema.? Ankles:? Normal pain-free range of motion without tenderness, swelling, increased warmth or erythema. Feet:? Normal pain-free range of motion without tenderness, swelling, increased warmth or erythema. Tender points:? No tenderness to digital palpation at the occiput, trapezius, second rib, lateral epicondyle, knees, greater trochanter and gluteal area bilaterally. 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 Better on prednisone; TA bx negaitve 05/2023 Code(s): M31.6 - Other giant cell arteritis Plan Giant cell arteritis with no more headache. There still is some elevation of the sed rate and CRP. She does not seem to have any signs of PMR. The knee pain is from osteoarthritis. We still have no explanation for her tinnitus and await the MRI scan of the brain to look for an acoustic neuroma. Given the mild elevation of the inflammatory markers I think we have to stay with the current dose of prednisone. We will see if the MRI shows any significant pathology. I did talk to the front office help in March will set her up with someone to review her financial situation. She does not want any more testing but I would normally do another set of blood work before the next visit in 3 months. Coding Level of Care Code Est Pt Level 3 (61877) Diagnoses Tinnitus of left ear H93.12 On prednisone therapy Z79.52 Osteoarthritis of knees, bilateral M17.0 Temporal arteritis syndrome M31.6
[2023-08-25 09:26] VITALS: BP 104/72; PULSE 84; TEMP 36.3; O2SAT 97; BMI 36.2
== END 2023-08-25 09:45 | disposition home or self-care (01) ==
PROVIDERS: PCP Internal Medicine Geriatric Medicine; Visit Provider Internal Medicine Rheumatology
DX: H93.12 Tinnitus, left ear (principal); Z79.52 Long term (current) use of systemic steroids; M17.0 Bilateral primary osteoarthritis of knee; M31.6 Other giant cell arteritis
CPT/HCPCS: 99213

== ENCOUNTER → 2023-08-25 09:15 | Outpatient (BNVA) | payer MEDICARE, MEDICAID, SELFPAY | PROVIDERS: PCP Internal Medicine Geriatric Medicine; Visit Provider Internal Medicine Rheumatology | DX: M31.6 Other giant cell arteritis (principal); M17.0 Bilateral primary osteoarthritis of knee; H93.12 Tinnitus, left ear; Z79.52 Long term (current) use of systemic steroids | CPT/HCPCS: 99212 ==

== ENCOUNTER 2023-09-09 10:42 | Outpatient (REF) | payer MEDICARE, MEDICAID, SELFPAY | END 2023-09-09 10:43 | disposition home or self-care (01) | LOC: HO.HHCL 10:42 | PROVIDERS: Visit Provider Internal Medicine Geriatric Medicine | DX: Z13.220 Encounter for screening for lipoid disorders (principal); M31.6 Other giant cell arteritis; R73.03 Prediabetes; E55.9 Vitamin D deficiency, unspecified; E66.9 Obesity, unspecified; Z79.52 Long term (current) use of systemic steroids; R30.0 Dysuria | CPT/HCPCS: 36415; 80048; 80061; 81001; 83036 ==

== ENCOUNTER 2023-12-10 12:24 | Outpatient (REF) | payer MEDICARE, MEDICAID, SELFPAY ==
[2023-12-10 14:13] LABS: Erythrocyte Sedimentation Rate 26 MM/HR (0-20)
[2023-12-10 14:15] LABS: Alanine Aminotransferase 17 U/L (0-31); Albumin Level 4.2 g/dL (3.5-5.0); Alkaline Phosphatase 105 U/L (39-117); Anion Gap 13 (12-20); Aspartate Amino Transferase 17 U/L (5-31); Bilirubin Total 0.5 mg/dL (0.0-1.0); Blood Urea Nitrogen 23 mg/dL (9-16); C Reactive Protein 2.98 mg/dL (< or = 0.50); Calcium 10.2 mg/dL (8.4-10.2); Carbon Dioxide 27 mmol/L (22-29); Chloride 108 mmol/L (96-108); Estimated Glomerular Filt Rate > 60; Glucose Random 91 mg/dL (60-115); Potassium 4.4 mmol/L (3.3-5.1); Sodium 144 mmol/L (135-145); Total Protein 7.5 g/dL (6.5-8.0)
== END 2023-12-10 12:25 | disposition home or self-care (01) ==
LOC: HO.HHCL 12:24
PROVIDERS: Visit Provider Internal Medicine Geriatric Medicine
DX: R52 Pain, unspecified (principal); Z87.39 Personal history of other diseases of the musculoskeletal system and connective tissue
CPT/HCPCS: 36415; 80053; 85652; 86140

== ENCOUNTER 2024-04-28 14:42 | Outpatient (REF) | payer MEDICARE, MEDICAID, SELFPAY ==
--- NOTE | ~2024-04-28 | XR_ITS ---
EXAMINATION: XR KNEE, LEFT CLINICAL INFORMATION: Reason for Exam Severe knee pain and history of DJD COMPARISON: 05/23/2022 knee radiographs TECHNIQUE: 4 views of the knee FINDINGS: No acute fracture or dislocation. Moderate degenerative changes of the knee with loss of medial compartment joint space and tricompartmental osteophytes similar to prior. Mineralization the tibiofemoral joint space which may reflect sequelae of chondrocalcinosis.. No joint effusion. Atherosclerotic vascular calcification. XR/XR knee LT 4V IMPRESSION: 1. Moderate degenerative changes of the knee similar to prior. 2. Mineralization the tibiofemoral joint space which may reflect sequelae of chondrocalcinosis.
== END 2024-04-28 14:43 | disposition home or self-care (01) ==
LOC: HO.HHCX 14:42
PROVIDERS: Visit Provider Internal Medicine Geriatric Medicine
DX: M17.12 Unilateral primary osteoarthritis, left knee (principal); G89.29 Other chronic pain
CPT/HCPCS: 73564

== ENCOUNTER 2024-05-04 08:48 | Outpatient (AMB) | payer MEDICARE, MEDICAID, SELFPAY ==
--- NOTE | 2024-05-04 09:01 | MHC.OFFVIS ---
Vital Signs 05/04/24 09:13 Height 5 ft Weight 175 lb 14.862 oz BMI 34.4 BP 110/58 L Blood Pressure Location Rt brachial Position Sitting Pulse 76 Pulse Oximetry (%) 95 Intake Visit Reasons: GCA Intake Note: Patient last seen 08/25/[address] Klein, presents today for GCA follow up. c/o left knee pain Accompanied by: Daughter Allergies ibuprofen [From MOTRIN] Adverse Reaction (Mild, Verified 05/04/24 09:02) UPSET STOMACH percocet Allergy (Intermediate, Uncoded 05/04/24 09:02) Itching HPI Comments Details: Ms. May 73yoF returns for follow-up of her presumed giant cell arteritis. She has refused the [employer] translating service to facilitate the visit and uses her daughter who is also a patient of the office. She is long off prednisone and denies any headache and jaw pain at this time . She no longer has tinnitus. She denies any hearing loss. She has knees pain which worsens when she tries to stand up or walk. She wears a brace (none on today)and uses a walker. She is no longer takes meloxicam. She does use [id number] acetaminophen. She desires a left knee injection today 08/2023 Dr. Klein The patient returns for evaluation of her presumed giant cell arteritis. We are using the [employer] translating service to facilitate the visit. She is down to 10 mg daily of prednisone. She denies any headache at this time. She seems to have still tinnitus more on the left side than on the right side currently. She denies any hearing loss. I had ordered a brain MRI to investigate the possibility of an acoustic neuroma considering the ongoing headache and tinnitus. It is now scheduled for next month. She says she does not want any more tests however. She is still paying for the temporal artery biopsy. It is unclear why she is being charged since she says that she has both [employer] and Medicare. She has some pain in the knees, worse when she tries to stand up or walk. She is wearing some elastic knee braces. She is no longer on meloxicam. She does use [id number] acetaminophen. [facility] Medical History (Updated 05/20/24 @ 16:56 by JANA Regan-DIMAS) Left anterior knee pain Hypertension ESR raised Temporal arteritis syndrome Chronic nonintractable headache Arthralgia Surgical History History of biopsy History of total right knee replacement Total knee replacement status Tubal ligation status History of uterine suspension procedure History of cataract extraction Social History Alcohol intake: never Patient Tobacco Use Status: Former Tobacco user Review of Systems Const All systems reviewed & are unremarkable except as noted in HPI and below Physical Exam Vital Signs: Last Vital Signs Pulse 76 05/04/24 09:13 BP 110/58 L 05/04/24 09:13 Pulse Ox 95 05/04/24 09:13 BMI result Body Mass Index 34.4 APPEARANCE: Patient in no acute distress EYES no redness, pupils equal and reactive to light, eyelids normal.? No temporal artery tenderness, redness or swelling. There is a well-healed incision anterior to the ear where she had the biopsy. There is no signs of fluctuance, redness, or tenderness along the incision. EARS:? External ear normal, canal clear and tympanic membrane normal. I do not appreciate any hearing loss. NOSE/SINUS:? Airflow through both nares, no nasal discharge, no bleeding THROAT:? Oral mucosa moist, no ulcerations NECK:? No thyromegaly or masses, no adenopathy, trachea midline. HEART:? Regular rhythm, S1-S2 heard, no murmurs, rubs or gallops. LUNG:? Clear to percussion and auscultation ABD:? Normal bowel sounds, no organomegaly, masses or tenderness. EXTREMITIES:? No edema, no calf tenderness, normal peripheral pulses. NEURO:? Oriented and alert x3.? No focal weakness.? Reflexes symmetric.? Gait normal. SKIN:? No inflammatory or neoplastic lesions.? Normal color and turgor JOINT EXAM:.?? Cervical Spine:.? Some decrease in range of motion without pain; no tenderness. Thoracic Spine:.? No scoliosis.? No tenderness on palpation. Lumbar Spine:.? Alignment normal.? Mild pain with extremes of motion.? No tenderness. Chest Wall:.? No tenderness, swelling, increased warmth or erythema. Hands:.? Normal pain-free range of motion without tenderness, swelling, increased warmth or erythema. 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 Wrists:.? Normal pain-free range of motion without tenderness, swelling, increased warmth or erythema. Elbows:. Normal pain-free range of motion without tenderness, swelling, increased warmth or erythema. Shoulders:.?? Full range of motion without pain. No tenderness, weakness, swelling, increased warmth or erythema. Hips:.? Full range of motion without pain. Hip bursa:.? No tenderness. Knees:??Right:? Well-healed anterior scar from her surgery.? There is slight discomfort with extremes of flexion extension but no areas of tenderness, redness, swelling or fluctuance.? Left:? Mild patellofemoral crepitus and slight pain with extremes of normal motion with some minimal medial tenderness.? No effusion, soft tissue swelling, increased warmth or erythema.? Ankles:? Normal pain-free range of motion without tenderness, swelling, increased warmth or erythema. Feet:? Normal pain-free range of motion without tenderness, swelling, increased warmth or erythema. Tender points:? No tenderness to digital palpation at the occiput, trapezius, second rib, lateral epicondyle, knees, greater trochanter and gluteal area bilaterally. Office Procedures Joint Injection/Drain Joint Injection/Drain Primary Site: left knee Prep: site was prepped using aseptic technique Injected: 40 mg of, Kenalog, 1% plain lidocaine and other (2 ml) Procedure: The patient tolerated the procedure well Coding 70857 - Large joint Procedure code (CPT) selection complete Results Reviewed Results Reviewed: Laboratory Tests 12/10/23 05/04/24 12:28 10:00 WBC 8.1 RBC 4.35 Hgb 12.8 Hct 39.1 ESR 30 H Creatinine 0.81 0.87 C-Reactive Protein 2.62 H FINDINGS: No acute fracture or dislocation. Moderate degenerative changes of the knee with loss of medial compartment joint space and tricompartmental osteophytes similar to prior. Mineralization the tibiofemoral joint space which may reflect sequelae of chondrocalcinosis.. No joint effusion. Atherosclerotic vascular calcification. XR/XR knee LT 4V IMPRESSION: 1. Moderate degenerative changes of the knee similar to prior. 2. Mineralization the tibiofemoral joint space which may reflect sequelae of chondrocalcinosis. XR/XR lumbar spine 2-3V IMPRESSION: 1. There is mild degenerative disc disease at L1-L2. 2. There is multi-level thoracolumbar spondylosis. 3. There is a mild lumbar levoscoliosis. FINDINGS: CT SCAN for headache and tinnitus No acute osseous or soft tissue abnormality. The mastoid air cells and visualized portions of the paranasal sinuses are well aerated. There is no evidence of acute intracranial hemorrhage or territorial infarction. No abnormal mass effect or midline shift is seen. Fitzpatrick to white matter differentiation is well preserved. No extra-axial fluid collections are identified. No hydrocephalus. No significant volume loss. Patchy periventricular and deep white matter hypoattenuation is consistent with mild small vessel ischemic changes. CT/CT head/brain wo IV con IMPRESSION: No acute intracranial abnormality including hemorrhage, mass effect, hydrocephalus, or acute territorial edematous infarction. Assessment & Plan Assessment & Plan (1) Temporal arteritis syndrome: Comment: BERTRAND, myalgias 05/2023. Better on prednisone; TA bx negaitve 05/2023 Code(s): M31.6 - Other giant cell arteritis Category: Medical (2) Osteoarthritis of knees, bilateral: Code(s): M17.0 - Bilateral primary osteoarthritis of knee Category: Medical Qualifiers: Osteoarthritis type: primary Qualified Code(s): M17.0 - Bilateral primary osteoarthritis of knee (3) Left anterior knee pain: Code(s): M25.562 - Pain in left knee Category: Medical Plan #Giant cell arteritis with no more headache. There still is some elevation of the sed rate and CRP. She does not present with signs of PMR. She stopped the Prednsione and does not want to continue. #The knee pain is from osteoarthritis and chondrocalcinosis as seen on xrays: This too could cause elevated ESR/CRP. I gave her a Kenalog 40 mg injection today. She tolerated it well. 25 minutes spent reviewing history, evaluating patient and documenting Follow-up in 6 months or sooner if needed Orders: Orders Complete Blood Count Auto Diff 05/04/24 M31.6 - Other giant cell arteritis Comprehensive Met. Panel 05/04/24 M31.6 - Other giant cell arteritis C Reactive Protein 05/04/24 M31.6 - Other giant cell arteritis Erythrocyte Sedimentation Rate 05/04/24 M31.6 - Other giant cell arteritis AMB Joint Injection/Aspiration 05/04/24 M17.0 - Bilateral primary osteoarthritis of knee, M25.562 - Pain in left knee Coding Level of Care Code Est Pt Level 3 (47155) Complex EM visit Add On G2211 Diagnoses Temporal arteritis syndrome M31.6 Primary osteoarthritis of both knees M17.0 Osteoarthritis type: primary Left anterior knee pain M25.562 CPT Codes Coding - 05169 Large joint: 22135 - Large joint ([id number])
[2024-05-04 09:13] VITALS: BP 110/58; PULSE 76; O2SAT 95; BMI 34.4
== END 2024-05-04 09:50 | disposition home or self-care (01) ==
PROVIDERS: PCP Internal Medicine Geriatric Medicine; Visit Provider Nurse Practitioner Family
DX: M31.6 Other giant cell arteritis (principal); M17.0 Bilateral primary osteoarthritis of knee; M25.562 Pain in left knee
CPT/HCPCS: 20610; 99213

== ENCOUNTER 2024-05-04 09:55 | Outpatient (REF) | payer MEDICARE, MEDICAID, SELFPAY ==
[2024-05-04 11:00] LABS: MANUAL DIFF FLAG NO
[2024-05-04 11:03] LABS: Basophils Absolute Auto 0.1 X10*3/uL (0.0-0.2); Basophils Percent Auto 0.9 % (0-2); Eosinophils Absolute Auto 0.4 X10*3/uL (0.0-0.4); Eosinophils Percent Auto 4.7 % (0-4); Hematocrit 39.1 % (37.0-47.0); Hemoglobin 12.8 g/dl (12.0-16.0); Imm Gran Abs Auto 0.02 X10*3/uL (0.00-0.03); Imm Gran Pct Auto 0.2 % (0.0-0.4); Lymphocytes Absolute Auto 2.3 X10*3/uL (1.2-4.9); Lymphocytes Percent Auto 28.8 % (20-40); Mean Corpuscular HGB Conc 32.7 g/dl (31.0-35.0); Mean Corpuscular Hemoglobin 29.4 pg (27.0-33.0); Mean Corpuscular Volume 89.9 fL (80.0-98.0); Mean Platelet Volume 9.8 fL (9.4-12.3); Monocytes Percent Auto 12.3 % (2-11); Neutrophils Absolute Auto 4.3 x10*3/uL (2.0-8.3); Neutrophils Percent Auto 53.1 % (45-73); Platelet Count 395 X10*3/uL (160-400); Red Blood Count 4.35 X10*6/uL (4.20-5.50); Red Cell Distribution Width 13.9 % (11.0-16.0); White Blood Count 8.1 X10*3/uL (4.8-10.8)
[2024-05-04 11:39] LABS: Alanine Aminotransferase 12 U/L (0-31); Albumin Level 4.3 g/dL (3.5-5.0); Alkaline Phosphatase 115 U/L (39-117); Anion Gap 14 (12-20); Aspartate Amino Transferase 19 U/L (5-31); Bilirubin Total 0.5 mg/dL (0.0-1.0); Blood Urea Nitrogen 19 mg/dL (9-16); C Reactive Protein 2.62 mg/dL (< or = 0.50); Calcium 10.2 mg/dL (8.4-10.2); Carbon Dioxide 24 mmol/L (22-29); Chloride 110 mmol/L (96-108); Estimated Glomerular Filt Rate > 60; Glucose Random 98 mg/dL (60-115); Potassium 4.4 mmol/L (3.3-5.1); Sodium 144 mmol/L (135-145); Total Protein 7.7 g/dL (6.5-8.0)
[2024-05-04 11:44] LABS: Erythrocyte Sedimentation Rate 30 MM/HR (0-20)
== END 2024-05-04 09:56 | disposition home or self-care (01) ==
LOC: HO.10HDL 09:55
PROVIDERS: Visit Provider Nurse Practitioner Family
DX: M31.6 Other giant cell arteritis (principal); M17.0 Bilateral primary osteoarthritis of knee
CPT/HCPCS: 20610; 36415; 80053; 85025; 85652; 86140; 99212

== ENCOUNTER 2024-08-19 11:35 | Outpatient (REF) | payer MEDICARE, MEDICAID, SELFPAY ==
--- NOTE | ~2024-08-19 | XR_ITS ---
EXAMINATION: XR CHEST CLINICAL INFORMATION: Cough with myalgia and chest congestion COMPARISON: Chest radiograph 08/08/2021 TECHNIQUE: 2 views of the chest were obtained. FINDINGS: No significant abnormality is noted involving the heart, lungs, mediastinum, bony thorax or soft tissues. XR/XR chest 2V IMPRESSION: Unremarkable examination. Electronically signed by: Zia Hugo MD 08/19/2024 03:44 PM EDT
[2024-08-19 13:34] LABS: MANUAL DIFF FLAG NO
[2024-08-19 13:41] LABS: Basophils Absolute Auto 0.1 X10*3/uL (0.0-0.2); Basophils Percent Auto 0.7 % (0-2); Eosinophils Absolute Auto 0.3 X10*3/uL (0.0-0.4); Eosinophils Percent Auto 4.2 % (0-4); Hematocrit 37.2 % (37.0-47.0); Hemoglobin 12.1 g/dl (12.0-16.0); Imm Gran Abs Auto 0.02 X10*3/uL (0.00-0.03); Imm Gran Pct Auto 0.3 % (0.0-0.4); Lymphocytes Absolute Auto 2.1 X10*3/uL (1.2-4.9); Lymphocytes Percent Auto 27.8 % (20-40); Mean Corpuscular HGB Conc 32.5 g/dl (31.0-35.0); Mean Corpuscular Hemoglobin 29.7 pg (27.0-33.0); Mean Corpuscular Volume 91.2 fL (80.0-98.0); Mean Platelet Volume 10.2 fL (9.4-12.3); Monocytes Absolute Auto 0.5 X10*3/uL (0.1-1.2); Neutrophils Absolute Auto 4.6 x10*3/uL (2.0-8.3); Platelet Count 365 X10*3/uL (160-400); Red Blood Count 4.08 X10*6/uL (4.20-5.50); Red Cell Distribution Width 13.2 % (11.0-16.0); White Blood Count 7.6 X10*3/uL (4.8-10.8)
[2024-08-19 14:09] LABS: Alanine Aminotransferase 14 U/L (0-31); Alkaline Phosphatase 120 U/L (39-117); Anion Gap 12 (12-20); Aspartate Amino Transferase 19 U/L (5-31); Bilirubin Total 0.4 mg/dL (0.0-1.0); Blood Urea Nitrogen 15 mg/dL (9-16); Carbon Dioxide 26 mmol/L (22-29); Chloride 109 mmol/L (96-108); Cholesterol 227 mg/dL (<200); Estimated Glomerular Filt Rate > 60; Glucose Random 100 mg/dL (60-115); HDL Cholesterol 34 mg/dL (>40); LDL Cholesterol Calculated 159 mg/dL (<100); Potassium 4.3 mmol/L (3.3-5.1); Sodium 143 mmol/L (135-145); Total Protein 7.8 g/dL (6.5-8.0); Triglycerides 171 mg/dL (<150)
== END 2024-08-19 11:36 | disposition home or self-care (01) ==
LOC: HO.HHCL 11:35
PROVIDERS: Visit Provider Internal Medicine Geriatric Medicine
DX: I10 Essential (primary) hypertension (principal); Z79.899 Other long term (current) drug therapy; R05.1 Acute cough; M79.10 Myalgia, unspecified site; R09.89 Other specified symptoms and signs involving the circulatory and respiratory systems
CPT/HCPCS: 36415; 71046; 80053; 80061; 85025

== ENCOUNTER 2024-11-30 12:10 | Outpatient (REF) | payer MEDICARE, MEDICAID, SELFPAY ==
[2024-11-30 13:30] LABS: MANUAL DIFF FLAG NO
[2024-11-30 13:38] LABS: Basophils Percent Auto 0.6 % (0-2); Eosinophils Absolute Auto 0.3 X10*3/uL (0.0-0.4); Eosinophils Percent Auto 4.5 % (0-4); Hemoglobin 12.6 g/dl (12.0-16.0); Imm Gran Abs Auto 0.01 X10*3/uL (0.00-0.03); Imm Gran Pct Auto 0.1 % (0.0-0.4); Lymphocytes Percent Auto 28.6 % (20-40); Mean Corpuscular HGB Conc 32.3 g/dl (31.0-35.0); Mean Corpuscular Hemoglobin 29.2 pg (27.0-33.0); Mean Corpuscular Volume 90.5 fL (80.0-98.0); Mean Platelet Volume 9.8 fL (9.4-12.3); Monocytes Absolute Auto 0.7 X10*3/uL (0.1-1.2); Monocytes Percent Auto 10.1 % (2-11); Neutrophils Percent Auto 56.1 % (45-73); Platelet Count 431 X10*3/uL (160-400); Red Blood Count 4.31 X10*6/uL (4.20-5.50); Red Cell Distribution Width 13.6 % (11.0-16.0); White Blood Count 7.1 X10*3/uL (4.8-10.8)
[2024-11-30 13:40] LABS: Estimated Average Glucose 114 mg/dL; Hemoglobin A1C 124.9491 umol/L; Hemoglobin A1c % 5.6 % (<6.0); Total Hemoglobin (HGBA1C) 3275.7021 umol/L
[2024-11-30 13:54] LABS: Alanine Aminotransferase 13 U/L (0-31); Albumin Level 4.3 g/dL (3.5-5.0); Alkaline Phosphatase 132 U/L (39-117); Anion Gap 13 (12-20); Aspartate Amino Transferase 23 U/L (5-31); Bilirubin Total 0.5 mg/dL (0.0-1.0); Blood Urea Nitrogen 17 mg/dL (9-16); Calcium 10.1 mg/dL (8.4-10.2); Carbon Dioxide 24 mmol/L (22-29); Chloride 111 mmol/L (96-108); Cholesterol 280 mg/dL (<200); Estimated Glomerular Filt Rate > 60; Glucose Random 103 mg/dL (60-115); HDL Cholesterol 43 mg/dL (>40); LDL Cholesterol Calculated 202 mg/dL (<100); Potassium 4.7 mmol/L (3.3-5.1); Sodium 143 mmol/L (135-145); Total Protein 8.3 g/dL (6.5-8.0); Triglycerides 178 mg/dL (<150)
[2024-11-30 14:15] LABS: TSH reflex Free T4 1.03 uIU/mL (0.32-4.0)
== END 2024-11-30 12:11 | disposition home or self-care (01) ==
LOC: HO.HHCL 12:10
PROVIDERS: Visit Provider Internal Medicine Geriatric Medicine
DX: M17.0 Bilateral primary osteoarthritis of knee (principal); Z79.899 Other long term (current) drug therapy; F32.A Depression, unspecified; R73.03 Prediabetes; F41.9 Anxiety disorder, unspecified; F32.0 Major depressive disorder, single episode, mild
CPT/HCPCS: 36415; 80053; 80061; 83036; 84443; 85025

== ENCOUNTER 2024-12-15 12:53 | Outpatient (AMB) | payer MEDICARE, MEDICAID, SELFPAY ==
--- NOTE | 2024-12-15 13:27 | AM.OFFWIN_ITS ---
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 Patient Tobacco Use Status: Former Tobacco user Allergies ibuprofen [From MOTRIN] Adverse Reaction (Mild, Verified 05/04/24 09:02) UPSET STOMACH percocet Allergy (Intermediate, Uncoded 05/04/24 09:02) Itching Do you need a note to return to daycare/school/sports/work: No HPI HPI Comments History of Present Illness Details Patient presents with daughter for L arm cramping/pain since 11/30 Also, severe constipation x 3 weeks with small bowel movements + dizziness x a few days No trauma or injury She said chest feels fine She gets cramping sharp pain in L arm randomly in upper arm Intermittent;randomly. No improving or worsening factors; it does not worsen with palpation or movement. It comes randomly She is breathing okay but sometimes feels winded She said no abdominal pain no nausea or vomiting Small bowel movements x 3 weeks No blood or melena Per daughter she said she is going not every day No urgency to go Dizziness is intermittent She said when she bends forward or when she turns in bed, + dizziness No syncope, falls or LOC She said vision is fine No URI symptoms such as ear oain, congestion or ST She has had dizziness like this in past without work up. [facility] Medical History (Updated 12/15/24 @ 13:51 by Fabiana Ortega PA-C) Left anterior knee pain Hypertension ESR raised Temporal arteritis syndrome Chronic nonintractable headache Arthralgia Surgical History History of biopsy History of total right knee replacement Total knee replacement status Tubal ligation status History of uterine suspension procedure History of cataract extraction Social History Alcohol intake: never Patient Tobacco Use Status: Former Tobacco user Review of Systems Const Denies chills, Reports fatigue, Denies fever(s), Denies frequent falls, Denies headache(s) and Reports poor appetite Eyes Denies change in vision ENT Reports dizziness, Denies otalgia, Denies headache(s), Denies nasal congestion and Denies sore throat Card Denies chest pain, Denies syncope and Reports dyspnea Resp Denies cough and Reports dyspnea GI Denies abdominal pain, Denies melena, Denies hematochezia, Reports constipation, Denies nausea and Denies vomiting Musc Reports radiating pain into limb (L sided arm pain; cramping. Random and intermittent) and Denies tingling Skin/Breast Denies rash Neuro Denies confusion, Reports dizziness, Denies syncope, Denies frequent falls, Denies headache(s), Denies focal weakness and Denies tingling Psych Denies confusion Endo Reports fatigue Physical Exam Vital Signs: Last Vital Signs Pulse 60 12/15/24 13:31 BP 122/70 12/15/24 13:31 Pulse Ox 99 12/15/24 13:31 Oxygen Delivery Method Room Air 12/15/24 13:31 General: Non-toxic, NAD. Sitting upright and able to transfer from chair to chair on own Skin: Warm dry throughout. No obvious LUE edema or skin abnormality noted Eye: EOMI, PERRL. No nystagmus or lid lag HENT: Airway patent. Uvula midline. No pharyngeal erythema or edema. No TRAFFIC CONTROLLER CABLE. Bilateral canals clear. TM non-erythematous, non-bulging. No TM perforation or hemotympanum noted. Respiratory: CTA bilaterally. No wheezes, rales or rhonchi Cardiac: RRR. No murmur. Radial pulse intact MSK: No neck ttp. No bony tenderness to palpation L lateral humeral head, humerus or elbow. No pain illicit with LUE movement at shoulder joint. Neurology: Alert. CN 2-12 grossly intact. Finger to nose tracing equal bilaterally. Negative pronator drift. 4/5 strength bilateral stone splitter. No aphasia or facial droop. Gait without abnormality Psych: Good mood and affect Const General: No confusion Orientation/consciousness: No confusion Neuro General: No confusion Assessment & Plan Assessment & Plan (1) Left arm pain: Code(s): M79.602 - Pain in left arm Plan: No pain illicited on exam but pt experienced the cramp during interview when sitting still No neurovascular deficit nored on exam EKG ordered due to ? atypical chest pain with elderly female with dizziness: EKG is normal sinus but pt noted to have inversion in 2 consecutive leads V5 and V6 and there is no comparison in system Tried to look up EKG in system and through [facility] without sucess. I can not rule out that ischemic changes in V5/V6 acute vs chronic. Due to this, discussion had with pt and daughter and they agree to go to [facility]. They refuse to take ambulance. Expect called to [facility] and copy of EKG going with pt (2) Constipation: Code(s): K59.00 - Constipation, unspecified Qualifiers: Constipation type: unspecified constipation type Qualified Code(s): K59.00 - Constipation, unspecified Plan: BS present. No tenderness to palpation of abdomen on exam No acute abdomen at this time Pt concerned about issue and may obtain KUB in ER if warranted (3) Dizziness: Code(s): R42 - Dizziness and giddiness Plan: No neuro deficit noted on exam Symptoms when pt moving in bed or bending over She has had in past. She is going to ER for chest pain rule out and will be further evaluated for other etiologies of dizziness such as electrolyte dysrythmia etc. Coding Level of Care Code Est Pt Level 4 (89396) Diagnoses Left arm pain M79.602 Constipation, unspecified constipation type K59.00 Constipation type: unspecified constipation type Dizziness R42
[2024-12-15 13:31] VITALS: BP 122/70; PULSE 60; O2SAT 99
== END 2024-12-15 14:23 | disposition home or self-care (01) ==
PROVIDERS: PCP Internal Medicine Geriatric Medicine; Visit Provider Physician Assistant
DX: M79.602 Pain in left arm (principal); K59.00 Constipation, unspecified; R42 Dizziness and giddiness

== ENCOUNTER 2024-12-15 14:42 | Emergency (ER) | payer MEDICARE, MEDICAID, SELFPAY ==
--- NOTE | 2024-12-15 | ECG_ITS ---
Test Reason : chest pain Blood Pressure : */* mmHG Vent. Rate : 69 BPM Atrial Rate : 69 BPM P-R Int : 168 ms QRS Dur : 90 ms QT Int : 408 ms P-R-T Axes : 43 -29 120 degrees QTcB Int : 437 ms Normal sinus rhythm Moderate voltage criteria for LVH, may be normal variant ( R in aVL , [employer] product ) Septal infarct , age undetermined T wave abnormality, consider lateral ischemia Abnormal ECG When compared with ECG of 13-Mar-2018 17:19, Septal infarct is now Present Inverted T waves have replaced nonspecific T wave abnormality in Lateral leads Referred By: Generic ED Physician Electronically Signed By: Sam Sanchez
[2024-12-15 15:19] VITALS: BP 126/69; PULSE 67; RESP 20; TEMP 36.4; O2SAT 99; BMI 32.8
--- NOTE | 2024-12-15 15:21 | ED_ITS ---
HPI - General Adult General Chief complaint: Dizziness Stated complaint: Chest Pain From Urgent Care Related Data Home Medications ?Medication ?Instructions ?Recorded ?Confirmed acetaminophen 650 mg 650 mg PO Q12H 06/06/23 08/25/23 tablet,extended release (Tylenol Arthritis Pain) amlodipine 2.5 mg tablet 2.5 mg PO DAILY 06/06/23 08/25/23 atorvastatin 20 mg tablet 20 mg PO DAILY 06/06/23 08/25/23 docusate sodium 100 mg capsule 100 mg PO BID 06/06/23 08/25/23 hydroxyzine pamoate 25 mg capsule 25 mg PO BID 06/06/23 08/25/23 multivitamin 1 tab PO QAM 06/06/23 08/25/23 escitalopram oxalate 5 mg tablet 5 mg PO DAILY 05/04/24 Previous Rx's ?Medication ?Instructions ?Recorded clonazepam 0.5 mg tablet 0.5 mg PO ONCE #1 tab 07/21/23 cholecalciferol (vitamin D3) 50 50 mcg PO DAILY #30 caps 07/22/23 mcg (2,000 unit) capsule meclizine 25 mg tablet 25 mg PO BID PRN dizziness #30 tabs 12/17/24 polyethylene glycol 3350 17 17 g PO DAILY #238 grams 12/17/24 gram/dose oral powder (Miralax) triamcinolone acetonide 0.1 % 1 appl topical BID #30 grams 12/17/24 topical cream Allergies Allergy/AdvReac Type Severity Reaction Status Date / Time ibuprofen [From MOTRIN] AdvReac Mild UPSET Verified 12/17/24 07:05 STOMACH percocet Allergy Intermediate Itching Uncoded 05/04/24 09:02 [facility] Past Medical History Medical History (Updated 02/08/25 @ 17:41 by Chadd Singletary) Left anterior knee pain Hypertension ESR raised Temporal arteritis syndrome Chronic nonintractable headache Arthralgia Surgical History History of biopsy History of total right knee replacement Total knee replacement status Tubal ligation status History of uterine suspension procedure History of cataract extraction Social History Social History Alcohol intake: former Patient Tobacco Use Status: Former Tobacco user Smoked in Last 30 Days: No Use of substances other than those prescribed or required for medical reasons: No Advance Directives: No Advance Directives Information Provided: Yes Physical Exam ED Vital Signs: BMI result Body Mass Index 32.8 Course Course Course Narrative: RME, this is a rapid medical exam performed by Lane Singletary please refer to primary provider for complete H&P- 74-year-old female presents for evaluation of dizziness. The patient went to urgent care this morning due to dizziness and was referred to the ER due to an abnormal EKG. She has no chest pain. She does complain of left arm pain that has been present for the last 2 weeks. Plan for cardiac workup Discharge Plan Discharge Clinical Impression: Dizziness Patient Disposition: Left W/O Completing Treatment Prescriptions: No Action cholecalciferol (vitamin D3) 50 mcg (2,000 unit) capsule 50 mcg PO DAILY Qty: 30 3RF polyethylene glycol 3350 [Miralax] 17 gram/dose powder 17 g PO DAILY Qty: 238 0RF triamcinolone acetonide 0.1 % cream 1 appl topical BID Qty: 30 0RF meclizine 25 mg tablet 25 mg PO BID PRN (Reason: dizziness) Qty: 30 0RF docusate sodium 100 mg capsule 100 mg PO BID multivitamin Tablet 1 tab PO QAM acetaminophen [Tylenol Arthritis Pain] 650 mg tablet extended release 650 mg PO Q12H atorvastatin 20 mg tablet 20 mg PO DAILY hydroxyzine pamoate 25 mg capsule 25 mg PO BID amlodipine 2.5 mg tablet 2.5 mg PO DAILY escitalopram oxalate 5 mg tablet 5 mg PO DAILY clonazepam 0.5 mg tablet 0.5 mg PO ONCE Qty: 1 0RF Rx Instructions: before proceedure Discharge Date/Time: 12/15/24 17:32
== END 2024-12-15 17:32 | disposition left against medical advice (07) ==
PROVIDERS: Emergency Provider Emergency Medicine; PCP Internal Medicine Geriatric Medicine
DX: R42 Dizziness and giddiness (principal); I10 Essential (primary) hypertension; Z79.899 Other long term (current) drug therapy
CPT/HCPCS: 93005; 99212; 99283

== ENCOUNTER → 2024-12-15 15:04 | Outpatient (BNV) | payer MEDICARE, MEDICAID, SELFPAY | PROVIDERS: Emergency Provider Emergency Medicine; PCP Internal Medicine Geriatric Medicine; Visit Provider Internal Medicine Cardiovascular Disease | DX: R07.9 Chest pain, unspecified (principal); R94.31 Abnormal electrocardiogram [ECG] [EKG] | CPT/HCPCS: 93010 ==

== ENCOUNTER 2024-12-17 06:51 | Emergency (ER) | payer MEDICARE, MEDICAID, SELFPAY ==
--- NOTE | ~2024-12-17 | XR_ITS ---
EXAMINATION: XR ABDOMEN KUB CLINICAL INDICATION: constipation COMPARISON: None available. TECHNIQUE: AP view of the abdomen. FINDINGS: Abundant stool within the large intestine. No distended intestine. No air-fluid levels. Multilevel thoracolumbar spondylosis. XR/XR KUB IMPRESSION: No intestinal obstruction pattern. Electronically signed by: Gopi Martines MD 12/17/2024 09:15 AM [facility]
[2024-12-17 07:01] VITALS: BP 163/79; PULSE 76; RESP 18; TEMP 36.6; O2SAT 98; BMI 32.8
--- NOTE | 2024-12-17 07:05 | ECG_ITS ---
Test Reason : abnormal EKG at [facility],DIZZINESS Blood Pressure : */* mmHG Vent. Rate : 69 BPM Atrial Rate : 69 BPM P-R Int : 146 ms QRS Dur : 86 ms QT Int : 424 ms P-R-T Axes : 19 -37 128 degrees QTcB Int : 454 ms Normal sinus rhythm Left axis deviation Moderate voltage criteria for LVH, may be normal variant ( R in aVL , [employer] product ) Septal infarct (cited on or before 15-Dec-2024) T wave abnormality, consider lateral ischemia Abnormal ECG When compared with ECG of 15-Dec-2024 15:04, Questionable change in initial forces of Septal leads Referred By: Generic ED Physician Electronically Signed By: LEVON YUSUF MD
[2024-12-17 07:39] LABS: MANUAL DIFF FLAG NO
[2024-12-17 07:49] LABS: Basophils Absolute Auto 0.1 X10*3/uL (0.0-0.2); Basophils Percent Auto 0.6 % (0-2); Eosinophils Absolute Auto 0.4 X10*3/uL (0.0-0.4); Eosinophils Percent Auto 4.7 % (0-4); Hematocrit 37.3 % (37.0-47.0); Hemoglobin 12.5 g/dl (12.0-16.0); Imm Gran Abs Auto 0.02 X10*3/uL (0.00-0.03); Imm Gran Pct Auto 0.3 % (0.0-0.4); Lymphocytes Absolute Auto 2.3 X10*3/uL (1.2-4.9); Lymphocytes Percent Auto 29.6 % (20-40); Mean Corpuscular HGB Conc 33.5 g/dl (31.0-35.0); Mean Corpuscular Hemoglobin 29.8 pg (27.0-33.0); Mean Platelet Volume 9.8 fL (9.4-12.3); Monocytes Absolute Auto 0.8 X10*3/uL (0.1-1.2); Monocytes Percent Auto 10.4 % (2-11); Neutrophils Absolute Auto 4.3 x10*3/uL (2.0-8.3); Neutrophils Percent Auto 54.4 % (45-73); Platelet Count 351 X10*3/uL (160-400); Red Blood Count 4.19 X10*6/uL (4.20-5.50); Red Cell Distribution Width 13.5 % (11.0-16.0); White Blood Count 7.9 X10*3/uL (4.8-10.8)
[2024-12-17 07:51] LABS: Anion Gap 14 (12-20); Blood Urea Nitrogen 20 mg/dL (9-16); Carbon Dioxide 22 mmol/L (22-29); Chloride 112 mmol/L (96-108); Creatinine Clr Calc Pharmacy 59.8; Estimated Glomerular Filt Rate > 60; Glucose Random 110 mg/dL (60-115); Potassium 4.9 mmol/L (3.3-5.1); Sodium 143 mmol/L (135-145)
[2024-12-17 07:59] LABS: Troponin-I High Sensitivity 5.8 ng/L (<3.5-17.0)
--- NOTE | 2024-12-17 11:15 | ED_ITS ---
HPI - Dizziness General Chief Complaint: Recheck/Abnormal Lab/Rx Stated Complaint: abnormal EKG @ urgent care/dizziness Time Seen by Provider: 12/17/24 12:50 History of Present Illness ED Provider: Danisha PADILLA Narrative: The patient is a 74-year-old female who was seen at an urgent care center yesterday. She had a somewhat abnormal EKG and was advised to go to the emergency on that day. She had gone to the urgent care for constipation. She does not feel that she has had a decent bowel movement in over a week. She has some mild abdominal discomfort. No vomiting. No fever, sweats, chills. She had also been having some dizziness intermittently with position changes for over a month. She has also been having an intermittent itchy rash on the skin of her ankles. Related Data Home Medications ?Medication ?Instructions ?Recorded ?Confirmed acetaminophen 650 mg 650 mg PO Q12H 06/06/23 08/25/23 tablet,extended release (Tylenol Arthritis Pain) amlodipine 2.5 mg tablet 2.5 mg PO DAILY 06/06/23 08/25/23 atorvastatin 20 mg tablet 20 mg PO DAILY 06/06/23 08/25/23 docusate sodium 100 mg capsule 100 mg PO BID 06/06/23 08/25/23 hydroxyzine pamoate 25 mg capsule 25 mg PO BID 06/06/23 08/25/23 multivitamin 1 tab PO QAM 06/06/23 08/25/23 escitalopram oxalate 5 mg tablet 5 mg PO DAILY 05/04/24 Previous Rx's ?Medication ?Instructions ?Recorded clonazepam 0.5 mg tablet 0.5 mg PO ONCE #1 tab 07/21/23 cholecalciferol (vitamin D3) 50 50 mcg PO DAILY #30 caps 07/22/23 mcg (2,000 unit) capsule meclizine 25 mg tablet 25 mg PO BID PRN dizziness #30 tabs 12/17/24 polyethylene glycol 3350 17 17 g PO DAILY #238 grams 12/17/24 gram/dose oral powder (Miralax) triamcinolone acetonide 0.1 % 1 appl topical BID #30 grams 12/17/24 topical cream Allergies Allergy/AdvReac Type Severity Reaction Status Date / Time ibuprofen [From MOTRIN] AdvReac Mild UPSET Verified 12/17/24 07:05 STOMACH percocet Allergy Intermediate Itching Uncoded 05/04/24 09:02 Review of Systems 2 Review of Systems: Yes all other systems are reviewed and are negative [facility] Past Medical History Medical History (Updated 12/17/24 @ 21:55 by David Raman MD) Left anterior knee pain Hypertension ESR raised Temporal arteritis syndrome Chronic nonintractable headache Arthralgia Surgical History History of biopsy History of total right knee replacement Total knee replacement status Tubal ligation status History of uterine suspension procedure History of cataract extraction Social History Social History Alcohol intake: former Patient Tobacco Use Status: Former Tobacco user Smoked in Last 30 Days: No Use of substances other than those prescribed or required for medical reasons: No Advance Directives: No Advance Directives Information Provided: Yes Physical Exam 2 Vital Signs: Vital Signs: Last Vital Signs Temp 97.5 F 12/17/24 14:01 Pulse 73 12/17/24 14:01 Resp 18 12/17/24 14:01 BP 156/69 H 12/17/24 14:01 Pulse Ox 97 12/17/24 14:01 O2 Del Method Room Air 12/17/24 14:01 BMI result Body Mass Index 32.8 Const: Other: The patient is a somewhat chronically ill-appearing 74-year-old woman who is awake and alert, pleasant and cooperative. She seems to look somewhat chronically ill. She does not appear obviously acutely ill. HEENT: Other: face is symmetrical. Mucous membranes moist. Eyes: Other: Pupils are round equal, conjunctivae are clear Neck: Neck: Yes full ROM and Yes no JVD Resp: Effort & Inspection: normal respiratory effort Auscultation: clear to auscultation bilaterally Cardio: Rate: regular rate Rhythm: regular rhythm Heart sounds: S1 normal heart sound present and S2 normal heart sound present GI: Other: the abdomen is soft and nontender. Digital rectal exam revealed good rectal tone. There was no significant stool in the Rectum. No fecal impaction. Skin: Other: The patient had an area of the patchy of abnormal skin on the left medial malleolus. this was a small patch of maculopapular skin abnormality, mildly erythematous. No surrounding cellulitis. Neuro: Other: The patient was awake and alert with normal mental status. Eye movements are normal. No nystagmus. Pupils are round equal. Face is symmetrical. Speech is clear. She moves her extremities symmetrically and appropriately. No obvious focal deficit. Extrem: Other: No peripheral edema Course Course Course Narrative: 74 yo female with PMH Of headaches, vertigo, temporal arteritis, anxiety, HTN, HLD here with c/o having L arm pain and dizziness went to yesterday and had abnormal EKG - this was NSR but there was LVH and biphasic t waves, flat t waves V1 and V2 she reports she still has persistent dizziness when turning in bed. In ED EKG unchanged from two days ago but last EKG was in 2018. She has normal ataxic gat, normal speech, no focal deficits at this time basic labs, troponin x 2, repeat EKG, KUB for constipation though no n/v to suggest obstruction. this is a RAPID medical screening exam the rest of the history and physical exam is to be done by the main provider. Medications Administered Discontinued Medications Generic Name Dose Route Start Last Admin Trade Name Freq PRN Reason Stop Dose Admin Acetaminophen 975 mg 12/17/24 12:55 12/17/24 13:03 Acetaminophen 325 Mg Tablet PO 12/17/24 12:56 975 mg ONCE ONE Administration Sodium Biphosphate/Sodium Phosphate 133 ml 12/17/24 13:04 12/17/24 13:29 Sodium Phosphate,Han[place]-Dibasic 133 Ml Enema [place] 12/17/24 13:05 133 ml ONCE ONE Administration Medical Decision Making Medical Decision Making [facility] Narrative: the patient is a 74-year-old woman who has been having problems with constipation. She does not feel that she has had a good bowel movement for over a week. She is here with a daughter. She was seen at an urgent care center 2 days ago. At that visit she was found to have a no abnormal EKG (she had some complaint of brief, poking type episodes of chest pain that did not sound anginal ). She had been advised at that time to go to the emergency room but she did not come until today. Today's EKG shows similar T-wave inversions laterally but today's EKG is very similar to the EKG from 2 days ago. Her troponins today are flat. Her description of the symptoms does not sound like angina to me. She describes brief, almost instantaneous episodes of pain that are like being poked in the chest. The chief complaint seems to be constipation. a KUB had been all ordered at triage. This shows abundant stool but no sign of obstruction. A digital rectal exam reveals no sign of impaction. I administered a Fleet enema. Following the Fleet enema she had a large bowel movement and felt much better and was eager to go home. She will be prescribed MiraLax. She also has an itchy rash on her ankle for which I will prescribe topical steroids. She has also had problems with positional dizziness for more than a month. The symptoms do not suggest a stroke-like syndrome. I will prescribe meclizine. The patient was discharged follow-up with regular doctor. Lab Data 12/17/24 07:34 12/17/24 07:34 Labs: Lab Results 12/17/24 12/17/24 12/17/24 Range/Units 07:34 11:17 11:47 WBC 7.9 (4.8-10.8) X10*3/uL RBC 4.19 L (4.20-5.50) X10*6/uL Hgb 12.5 (12.0-16.0) g/dl Hct 37.3 (37.0-47.0) % MCV 89.0 (80.0-98.0) fL MCH 29.8 (27.0-33.0) pg MCHC 33.5 (31.0-35.0) g/dl RDW 13.5 (11.0-16.0) % Plt Count 351 (160-400) X10*3/uL MPV 9.8 (9.4-12.3) fL Immature Gran % (Auto) 0.3 (0.0-0.4) % Neut % (Auto) 54.4 (45-73) % Lymph % (Auto) 29.6 (20-40) % Hanover % (Auto) 10.4 (2-11) % Eos % (Auto) 4.7 H (0-4) % Baso % (Auto) 0.6 (0-2) % Lymph # (Auto) 2.3 (1.2-4.9) X10*3/uL Hanover # (Auto) 0.8 (0.1-1.2) X10*3/uL Eos # (Auto) 0.4 (0.0-0.4) X10*3/uL Baso # (Auto) 0.1 (0.0-0.2) X10*3/uL Abs Immat Gran (auto) 0.02 (0.00-0.03) X10*3/uL Absolute Neuts (auto) 4.3 (2.0-8.3) x10*3/uL Absolute Nucleated RBC 0.000 (0.0-0.012) X10*3/uL Nucleated RBC % (auto) 0.0 (0.0-0.2) /100WBC Sodium 143 (135-145) mmol/L Potassium 4.9 (3.3-5.1) mmol/L Chloride 112 H (96-108) mmol/L Carbon Dioxide 22 (22-29) mmol/L Anion Gap 14 (12-20) BUN 20 H (9-16) mg/dL Creatinine 0.73 (0.5-1.4) mg/dL Estim Creat Clear Calc 59.8 Estimated GFR > 60 Random Glucose 110 (60-115) mg/dL Calcium 10.0 (8.4-10.2) mg/dL Troponin I High Sens 5.8 5.3 (<3.5-17.0) ng/L Urine Color Yellow Urine Appearance Clear Urine pH 5.5 (5.0-9.0) Ur Specific Willard 1.020 (1.005-1.025) Urine Protein Negative (Neg-Trace) mg/dL Urine Glucose (UA) Negative (Negative) mg/dL Urine Ketones Negative (Negative) mg/dL Urine Blood Negative (Negative) Urine Nitrite Negative (Negative) Ur Leukocyte Esterase Negative (Negative) Independent Interpretation I performed an independent interpretation of an: EKG Interpretation: EKG at 07:23 shows normal sinus rhythm at 69 beats per minute. There are T- wave inversions laterally. EKG is very similar to an EKG from 2 days ago. Discharge Plan Discharge Clinical Impression: Dizzinesses, Constipation, Rash, Abnormal ECG Patient Disposition: Home, Self-Care Instructions: Constipation (DC) Additional Instructions: I have sent a prescription for the medication MiraLax to your pharmacy to help with what seems to be a problem with constipation. Please take this medication once a day, 1 capful in a large glass of water every day until you are having easy bowel movements. From the point of view of your dizziness you may try the meclizine prescribed. With regard to the rash on your ankle you may try the steroid cream prescribed. Please follow up soon with your regular doctor to discuss all these issues. Return to the emergency room if significantly worse. Prescriptions: New polyethylene glycol 3350 [Miralax] 17 gram/dose powder 17 g PO DAILY Qty: 238 0RF triamcinolone acetonide 0.1 % cream 1 appl topical BID Qty: 30 0RF meclizine 25 mg tablet 25 mg PO BID PRN (Reason: dizziness) Qty: 30 0RF No Action cholecalciferol (vitamin D3) 50 mcg (2,000 unit) capsule 50 mcg PO DAILY Qty: 30 3RF docusate sodium 100 mg capsule 100 mg PO BID multivitamin Tablet 1 tab PO QAM acetaminophen [Tylenol Arthritis Pain] 650 mg tablet extended release 650 mg PO Q12H atorvastatin 20 mg tablet 20 mg PO DAILY hydroxyzine pamoate 25 mg capsule 25 mg PO BID amlodipine 2.5 mg tablet 2.5 mg PO DAILY escitalopram oxalate 5 mg tablet 5 mg PO DAILY clonazepam 0.5 mg tablet 0.5 mg PO ONCE Qty: 1 0RF Rx Instructions: before proceedure Referrals: Name,MD Milton [Primary Care Provider] - (Constipation, positional dizziness, ankle rash) Interventions: ED Discharge Assessment Last Done: 12/17/24 14:01 Discharge Date/Time: 12/17/24 14:03 Print Language: Japanese
[2024-12-17 11:46] LABS: Troponin-I High Sensitivity 5.3 ng/L (<3.5-17.0)
[2024-12-17 11:54] LABS: Appearance Urine Clear; Color Urine Yellow; Glucose Urine UA Negative (Negative); Leukocyte Esterase Urine Negative (Negative); Nitrite Urine Negative (Negative); PH 5.5 (5.0-9.0); Urine Blood Negative (Negative); Urine Ketones Negative (Negative); Urine Protein Negative (Neg-Trace)
[2024-12-17 12:33] VITALS: BP 149/54; PULSE 68; RESP 18; TEMP 36.6; O2SAT 97
[2024-12-17] MEDS: Acetaminophen 325 MG TABLET 975 MG PO (13:03)
[2024-12-17] MEDS: Sodium Phosphate,Mono-Dibasic 133 ML ENEMA PR (13:29)
[2024-12-17 14:01] VITALS: BP 156/69; PULSE 73; RESP 18; TEMP 36.4; O2SAT 97
== END 2024-12-17 14:03 | disposition home or self-care (01) ==
PROVIDERS: Emergency Medicine; Emergency Provider Emergency Medicine; PCP Internal Medicine Geriatric Medicine
DX: R42 Dizziness and giddiness (principal); K59.00 Constipation, unspecified; R94.31 Abnormal electrocardiogram [ECG] [EKG]; R21 Rash and other nonspecific skin eruption; Z87.891 Personal history of nicotine dependence
CPT/HCPCS: 36415; 74018; 80048; 81003; 84484; 85025; 93005; 99283; 99284

== ENCOUNTER → 2024-12-17 07:05 | Outpatient (BNV) | payer MEDICARE, MEDICAID, SELFPAY | PROVIDERS: Emergency Provider Emergency Medicine; PCP Internal Medicine Geriatric Medicine; Visit Provider Internal Medicine Cardiovascular Disease | DX: R42 Dizziness and giddiness (principal); R94.31 Abnormal electrocardiogram [ECG] [EKG] | CPT/HCPCS: 93010 ==

== ENCOUNTER → 2024-12-17 09:00 | Outpatient (BNV) | payer MEDICARE, MEDICAID, SELFPAY | PROVIDERS: PCP Internal Medicine Geriatric Medicine; Visit Provider Radiology Diagnostic Radiology | DX: K59.00 Constipation, unspecified (principal) | CPT/HCPCS: 74018 ==

== ENCOUNTER 2025-03-22 13:22 | Outpatient (AMB) | payer MEDICARE, MEDICAID, SELFPAY ==
--- NOTE | 2025-03-22 13:27 | AM.OFFWIN_ITS ---
Intake Vital Signs 03/22/25 13:30 Weight 168 lb BP 120/74 Blood Pressure Location Rt brachial Position Sitting Pulse 72 Pulse Source Pulse Oximeter Pulse Oximetry (%) 98 Oxygen Delivery Method Room Air Intake Visit Reasons: EP abscess on r/l lower legs Intake Note: Patient here for lump on bilat feet that are red and arch of feet hurt. Patient Tobacco Use Status: Former Tobacco user Allergies ibuprofen [From MOTRIN] Adverse Reaction (Mild, Verified 03/22/25 13:32) UPSET STOMACH percocet Allergy (Intermediate, Uncoded 03/22/25 13:32) Itching Do you need a note to return to daycare/school/sports/work: No HPI HPI Comments History of Present Illness Details This is a 74-year-old female with a past medical history of hypertension, hyperlipidemia and anxiety presenting for evaluation of lesions on her feet bilaterally that have been present for the past 1 month. Patient describes these lesions as initially itchy but have now turned red and somewhat painful. Patient has not taken any medication for treatment of her discomfort. She denies having any fevers, chills or discharge from these lesions. Patient has no difficulty ambulating. [facility] Medical History (Updated 03/22/25 @ 13:58 by Damaris Anderson PA-C) Left anterior knee pain Hypertension ESR raised Temporal arteritis syndrome Chronic nonintractable headache Arthralgia Surgical History History of biopsy History of total right knee replacement Total knee replacement status Tubal ligation status History of uterine suspension procedure History of cataract extraction Social History Alcohol intake: former Patient Tobacco Use Status: Former Tobacco user Review of Systems Const All systems reviewed & are unremarkable except as noted in HPI and below Denies chills, Denies fatigue and Denies fever(s) Eyes Reports no additional complaints ENT Reports no additional complaints Card Reports no additional complaints Resp Reports no additional complaints Reports no additional complaints Skin/Breast Reports system reviewed and no additional complaints, except as documented, Reports change in pigmentation, Reports pruritus, Reports lesions and Reports erythema Neuro Reports no additional complaints Psych Reports no additional complaints Endo Reports no additional complaints and Denies fatigue Ras/Lymph Reports no additional complaints Aller/Immun Reports no additional complaints Physical Exam Const General: cooperative, healthy appearing, comfortable, no acute distress, well developed, alert and awake Nutritional Appearance: well nourished Orientation/consciousness: patient oriented x3 Limitations: no limitations Skin Other: Two areas of excoriation on the feet both with surrounding erythema, no tenderness to touch; 1. 1.5cm area of excoriation on the medial right ankle with 0.5mm surrounding erythema; 2. 2cm area of excoriation on the anterior left ankle with 1cm surrounding erythema. No lymphangitis present, no tenderness to touch. Neuro General: patient oriented x3 Extrem Other: Patient ambulating without difficulty. Assessment & Plan Assessment & Plan (1) Ankle cellulitis: Comment: Patient has areas of excoriation with secondary cellulitis on the ankles bilaterally. Patient will be discharged home with doxycycline. Code(s): L03.119 - Cellulitis of unspecified part of limb Plan: Doxycycline b.i.d. x7 days. Follow up with PCP only as needed. Medications: New doxycycline hyclate 100 mg PO BID 14 tabs 0RF Coding Level of Care Code Est Pt Level 3 (87865) Diagnoses Ankle cellulitis L03.119 Time Spent (min) 20
[2025-03-22 13:30] VITALS: BP 120/74; PULSE 72; O2SAT 98
--- OUTSIDE RECORDS SUMMARY | 2025-03-22 15:49 | XMS_ITS | Encounter Summary ---
Author Organization [facility] Address [address] [place] [address] Care Team Providers Care Restaurant Worker Name Role Phone Name, Milton VILLALOBOS Primary Care Provider Unavailabl e Encounter Details Date Type Department Care Team Description 05/20/2017 Release of Information Medical Records [address] [place] [id number] Abstract, Provider Social History Tobacco Use Types Packs/Day Years Used Date Smoking Tobacco: Former Cigarettes 1 25 Smokeless Tobacco: Never Comments:15yrs Alcohol Use Standard Drinks/Week Comments No 0 (1 standard drink = 0.6 oz pur e alcohol) Sex Assigned at Date Recorded Not on file documented as of this encounter Plan of Treatment Not on file documented as of this encounter Visit Diagnoses Not on filedocumented in this encounter Care Teams Restaurant Worker Relationship Specialty Start Date End Date Name, MD Milton PCP - General 04/12/09 documented as of this encounter
--- OUTSIDE RECORDS SUMMARY | 2025-03-22 15:49 | XMS_ITS | Clinical Summary ---
Author Organization [facility] Address [address] [place] [address] Care Team Providers Care Water Maintenance Supervisor Name Role Phone Name, Milton VILLALOBOS Primary Care Provider Unavailabl e Allergies Active Allergy Reactions Severity Noted Date Comments Ibuprofen Micronized OTHER 04/13/2009 Stomach upset. Medications Medication Sig Dispensed Refills Start Date End Date Status hydrOXYzine (ATARAX) 25 MG tablet Take 1 Tab by mouth at bedtime as needed for Anxiety. 30 Tab 0 08/27/2013 Active lidocaine-prilocaine (EMLA) cream Apply to itchy area nightly 30 g 0 10/26/2014 Active QUEtiapine Fumarate (SEROQUEL OR) Take by mouth. 0 Active pravastatin (PRAVACHOL) 40 MG tablet Take 1 Tab by mouth daily. 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 Psoriasis 06/13/2011 High cholesterol 05/17/2009 Knee pain 04/13/2009 Hip pain 04/13/2009 Obesity 04/13/2009 Depression 04/13/2009 Overview: Patient has chronic insommnia she has counselor and psychiatrist and [facility] Constipation 04/13/2009 Overview: Chronic constipation Urine, incontinence, stress female 04/13 Fatigue 04/13/2009 Resolved Problems Problem Noted Date Resolved Date Heel pain 06/13/2011 10/26/2014 Immunizations Name Administration Dates Next Due Influenza (> 6 Months) 10/26/2014,10/18/2013,,08/17/2010 Tdap 05/19/2009 Family History Medical History Relation Name Comments CA Colon Aunt 2 Cataract Mother Blindness Negative Hx CA Breast Negative Hx CA Ovarian Negative Hx Glaucoma Negative Hx Macular Degeneration Negative Hx Strabismus Negative Hx Relation Name Status Comments Aunt 1 Aunt 2 Brother 1 Alive depression, alc ohol Brother 2 HIV Brother 3 HIV Brother 4 HIV Daughter 1 Alive depression Daughter 2 Alive depression Daughter 3 Alive depression Father h/o blood clots ? Mother lung problems ( idiopathy fibrosis) Sister 1 Alive depression, alc ohol Sister 2 Alive depression, alc ohol Sister 3 Alive depression, alc ohol Son Alive depression Social History Tobacco Use Types Packs/Day Years Used Date Smoking Tobacco: Former Cigarettes 1 25 Smokeless Tobacco: Never Comments:15yrs Alcohol Use Standard Drinks/Week Comments No 0 (1 standard drink = 0.6 oz pur e alcohol) Sex Assigned at Date Recorded Not on file Last Filed Vital Signs Vital Sign Reading Time Taken Comments Blood Pressure 100/60 08/02/2015 10:43 AM EDT Pulse 80 08/02/2015 10:43 AM EDT Temperature 36.6 ??C (97.9 ??F) 08/02/2015 10:43 AM E DT Respiratory Rate 16 08/02/2015 10:43 AM EDT Oxygen Saturation - - Inhaled Oxygen Concentration - - Weight 87.8 kg (193 lb 8 oz) 08/02/2015 10:43 AM EDT Height 157.5 cm (5' 2 ) 08/02/2015 10:43 AM EDT Body Mass Index 35.39 08/02/2015 10:43 AM EDT Plan of Treatment Health Maintenance Due Date Last Done Comments Covid-19 Vaccine (#1) 01/21/1951 SHINGLES VACCINE (1 of 2) 1998 PNEUMOCOCCAL VACCINE (1 - PCV) 2013 DEPRESSION SCREEN 10/26/2015 10/26/2014 FALL RISK ASSESSMENT 10/26/2015 10/26/2014 MAMMOGRAM 08/10/2016 08/10/2015, 07/02, 07/16/2013, Additional history exists DTAP/TDAP/TD (2 - Td or Tdap) 05/19/2019 05/19/2009 CHOLESTEROL SCREENING 08/02/2020 08/02/2015 , 01/24/2014, 08/24/2012, Additional history exists BMI CHECK/ADVISE 12/01/2024 08/02/2015, , 10/26/2014, Additional history exists INFLUENZA (Season Ended) 2025 017, 10/26/2014, 10/18/2013, Additional history exists BONE DENSITY SCREENING 12/20/2028 12/20/2013 HEPATITIS C SCREENING Completed 08/02/2015 Care Teams Water Maintenance Supervisor Relationship Specialty Start Date End Date Name, MD Milton PCP - General 04/12/09
--- OUTSIDE RECORDS SUMMARY | 2025-03-22 15:49 | XMS_ITS | Encounter Summary ---
Author Organization [facility] Address [address] [place] [address] Care Team Providers Care Boiler Maker Name Role Phone Name, Milton VILLALOBOS Primary Care Provider Unavailabl e Encounter Details Date Type Department Care Team Description 12/22/2013 Business Doc Medical Records [address] [place] [id number] Abstract, Provider Social History Tobacco Use Types [...] on filedocumented in this encounter Care Teams Boiler Maker Relationship Specialty Start Date End Date Name, MD Milton PCP - General 04/12/09 documented as of this encounter
--- OUTSIDE RECORDS SUMMARY | 2025-03-22 15:49 | XMS_ITS | Encounter Summary ---
Author Organization [facility] [employer] Address [address] [place] [address] Care Team Providers Care Relocation Commissioner Name Role Phone Name, Milton VILLALOBOS Primary Care Provider [phone] Encounter Details Date Type Department Care Team ([facility] Contact Info) Description 12/19/2023 Telephone [facility] [address] [place], [place] [phone] Name, MD Milton [address] [place] [address] Social History Tobacco Use Types Packs/Day Years Used Date Smoking Tobacco: Never Passive Smoke Exposure: Never Smokeless Tobacco: Never Alcohol Use Standard Drinks/Week Comments Never 0 (1 standard drink = 0.6 oz pur e alcohol) Depression Answer Date Recorded Patient Health Questionnaire-9 Score 6 03/26/2023 Housing Stability Answer Date Recorded What is your housing situation today? I have sharlene rosales 09/15/[address] you li ve. Do you have problems with any of the following? None of the above 09/15/2023 Food Insecurity Answer Date Recorded Within the past 12 months, y ou worried that your food would run out before you got money to buy more: Never True 09/15/2023 Within the past 12 months,th e food you bought just didn't last and you didn't have enough money to get more: Never True Transportation Answer Date Recorded In the past 12 months, has l ack of transportation kept you from medical appts, meetings, work or from getting things needed for daily living? No 09/15/2023 Utilities Answer Date Recorded In the past 12 months, has t he electric, gas, oil or water company threatened to shut off services in your home? No 09/15/2023 Depression Answer Date Recorded Patient Health Questionnaire-2 Score 2 03/26/2023 Comments Unknown Sex and Gender Information Value Date Recorded Sex Assigned at Female 09/30/2022 10:17 AM EDT Legal Sex Female 10:17 AM EDT Gender Identity Female 09/30/2022 10:17 AM EDT Sexual Orientation Straight 06/05/2024 11 :47 PM EDT documented as of this encounter Miscellaneous Notes * Telephone Encounter - Nohelia Vignesh - 12/19/2023 10:35 AM EST Tc from pt calling in regards to multivitamin tablets. Pt states she does not know where PCP sent medication. El advised medication was sent to [facility] in [place] on [address] and pt was not aware. Client Support Professional called pharmacy to verify script was there and was advised by pharmacy pt picked up a 90 day supply on 11/03. Client Support Professional advised pt and pt states she does not have the medication. documented in this encounter Plan of Treatment Upcoming Encounters Date Type Department Care Team (Late st Contact Info) Description 04/07/2025 11:15 AM EDT Office Visit [facility] [address] [place] [id number] Name, MD Milton [address] [place] [address] documented as of this encounter Visit Diagnoses Not on filedocumented in this encounter Additional Health Concerns Assessment Noted Time PHQ-9 Depression Total Score: 6 03/26/20 23 10:52 AM EDT documented as of this encounter Care Teams Relocation Commissioner Relationship Specialty Start Date End Date Name, MD Milton [address] [place] [id number] PCP - General Family Medicine 04/11/16 documented as of this encounter
--- OUTSIDE RECORDS SUMMARY | 2025-03-22 15:49 | XMS_ITS | Encounter Summary ---
Author Organization [facility] Address [address] [place] [address] Care Team Providers Care Tray Worker Name Role Phone Name, Milton VILLALOBOS Primary Care Provider Unavailabl e Encounter Details Date Type Department Care Team Description 06/22/2015 Head Pastry Chef Report Medical Records [address] [place] [id number] Kilo Mcelroy Social History Tobacco Use Types Packs/Day Years [...] on filedocumented in this encounter Care Teams Tray Worker Relationship Specialty Start Date End Date Name, MD Milton PCP - General 04/12/09 documented as of this encounter
--- OUTSIDE RECORDS SUMMARY | 2025-03-22 15:49 | XMS_ITS | Encounter Summary ---
Author Organization [facility] Address [address] [place] [address] Care Team Providers Care Agricultural Production Engineer Name Role Phone Name, Milton VILLALOBOS Primary Care Provider Unavailabl e Encounter Details Date Type Department Care Team Description 11/05/2010 Light Rail Signal Technician Report Medical Records [address] [place] [id number] [place] [address] Social History Tobacco Use Types Packs/Day Years Used Date Smoking Tobacco: Former Cigarettes 1 25 Comments:15yrs Alcohol Use Standard Drinks/Week Comments No 0 (1 standard drink = 0.6 oz pur e alcohol) Sex Assigned at Date Recorded Not on file documented as of this encounter Plan of Treatment Not on file documented as of this encounter Visit Diagnoses Not on filedocumented in this encounter Care Teams Agricultural Production Engineer Relationship Specialty Start Date End Date Name, MD Mitlon PCP - General 04/12/09 documented as of this encounter
--- OUTSIDE RECORDS SUMMARY | 2025-03-22 15:49 | XMS_ITS | Encounter Summary ---
Author Organization [facility] Address [address] [place] [address] Care Team Providers Care Template Cutter Name Role Phone Milton Kent MD Primary Care Provider Unavailabl e Reason for Visit * Reason Onset Date Comments Faxed Refill 03/25/2016 Encounter Details Date Type Department Care Team Description 03/25/2016 Refill Adult Medicine [address] [address] Name, MD Milton Faxed Refill Social History Tobacco Use Types Packs/Day Years Used Date Smoking Tobacco: Former Cigarettes 1 25 Smokeless Tobacco: Never Comments:15yrs Alcohol Use Standard Drinks/Week Comments No 0 (1 standard drink = 0.6 oz pur e alcohol) Sex Assigned at Date Recorded Not on file documented as of this encounter Miscellaneous Notes * Telephone Encounter - Anastasia Leong - 03/27/2016 9:39 AM EDT Will hold on to this until [facility] hears from patient as to her PCP * Telephone Encounter - Bri Brand MD - 03/27/2016 9:23 AM EDT Will not fill unless it is verified that she has a RB PCP and has an upcoming appt; otherwise she needs to obtain from outside PCP * Telephone Encounter - Anastasia Leong - 03/27/2016 8:[address] Brand, will you refill ? We do not know if patient is with Dr. Donte vera, last seen August * Telephone Encounter - Girish Hector - 03/25/2016 3:20 PM EDT Patient would like script to be: E-PRESCRIBED/FAXED TO PHARMACY WHEN WAS THE PATIENT'S LAST APPOINTMENT IN ADULT MEDICINE? 08-02-16 WHEN WAS THE LAST TIME THE PATIENT SAW THEIR PCP? Same as above Does patient have an upcoming appointment? No-unable to reach left [facility] to call for appointment due to refill request. Appt due (THE MEDICATION REQUESTED IS ON THE MED LIST ABOVE) All of the medications requested were on the CURRENT MEDS list Did you check the Pharmacy information above?: YES Patient wants: 30 -day supply Is this a mail order prescription request ? NO Patients current insurance carrier is: [place] / [place] / Product Type: MEDICARE [id number] documented in this encounter Plan of Treatment Not on file documented as of this encounter Visit Diagnoses Not on filedocumented in this encounter Care Teams Template Cutter Relationship Specialty Start Date End Date Name, MD Milton PCP - General 04/12/09 documented as of this encounter
--- OUTSIDE RECORDS SUMMARY | 2025-03-22 15:49 | XMS_ITS | Encounter Summary ---
Author Organization [employer] Address [address] [facility] 7t [place] [address] Care Team Providers Care Slice Cutting Machine Operator Helper Name Role Phone Name, Milton VILLALOBOS Primary Care Provider [phone] Reason for Visit * Reason Comments Med Refill Encounter Details Date Type Department Care Team ([facility] st Contact Info) Description 03/21/2025 Refill [facility] MEDICINE [address] [place] [address] Name, MD Milton [address] [place] [address] Social History Tobacco Use Types Packs/Day Years Used Date Smoking Tobacco: Never Passive Smoke Exposure: Never Smokeless Tobacco: Never Alcohol Use Standard Drinks/Week Comments Never 0 (1 standard drink = 0.6 oz pur e alcohol) Depression Answer Date Recorded Patient Health Questionnaire-9 Score 13 04/28/2024 Patient Health Questionnaire-9 Score 13 04/28/2024 Last PHQ-9: Questionnaire Data Not on file 0 04/28/2024 Housing Stability Answer Date Recorded What is your housing situation today? I have sharlene rosales 04/28/[address] you li ve. Do you have problems with any of the following? None of the above 04/28/2024 Food Insecurity Answer Date Recorded Within the past 12 months, y ou worried that your food would run out before you got money to buy more: Never True 04/28/2024 Within the past 12 months,th e food you bought just didn't last and you didn't have enough money to get more: Never True Transportation Answer Date Recorded In the past 12 months, has l ack of transportation kept you from medical appts, meetings, work or from getting things needed for daily living? No 04/28/2024 Utilities Answer Date Recorded In the past 12 months, has t he electric, gas, oil or water company threatened to shut off services in your home? No 04/28/2024 Depression Answer Date Recorded Patient Health Questionnaire-2 Score 6 04/28/2024 Comments Unknown Sex and Gender Information Value Date Recorded Sex Assigned at Female 09/30/2022 10:17 AM EDT Legal Sex Female 10:17 AM EDT Gender Identity Female 09/30/2022 10:17 AM EDT Sexual Orientation Straight 06/05/2024 11 :47 PM EDT documented as of this encounter Plan of Treatment Upcoming Encounters Date Type Department Care Team (Late st Contact Info) Description 04/07/2025 11:15 AM EDT Office Visit [facility] MEDICINE [address] [place] [address] Name, MD Milton [address] [place] [phone] documented as of this encounter Visit Diagnoses Not on filedocumented in this encounter Additional Health Concerns Assessment Noted Time PHQ-9 Depression Total Score: 13 024 2:13 PM EDT documented as of this encounter Care Teams Slice Cutting Machine Operator Helper Relationship Specialty Start Date End Date NameMilton MD [address] [place] [id number] PCP - General Family Medicine 04/11/16 documented as of this encounter
--- OUTSIDE RECORDS SUMMARY | 2025-03-22 15:49 | XMS_ITS | Encounter Summary ---
Author Organization [facility] Address [address] [place] [address] Care Team Providers Care Power Barker Operator Name Role Phone Name, Milton VILLALOBOS Primary Care Provider Unavailabl e Encounter Details Date Type Department Care Team Description 08/14/2015 Business Doc Medical Records [address] [place] [id number] Abstract, Provider Social History Tobacco Use Types [...] on filedocumented in this encounter Care Teams Power Barker Operator Relationship Specialty Start Date End Date Name, MD Milton PCP - General 04/12/09 documented as of this encounter
--- OUTSIDE RECORDS SUMMARY | 2025-03-22 15:49 | XMS_ITS | Encounter Summary ---
Author Organization [facility] Address [address] [place] [address] Care Team Providers Care Wallet Assembler Name Role Phone Name, Milton VILLALOBOS Primary Care Provider Unavailabl e Encounter Details Date Type Department Care Team Description 04/28/2015 Business Doc Medical Records [address] [place] [id number] Abstract, Provider Social History Tobacco Use Types [...] on filedocumented in this encounter Care Teams Wallet Assembler Relationship Specialty Start Date End Date Name, MD Milton PCP - General 04/12/09 documented as of this encounter
--- OUTSIDE RECORDS SUMMARY | 2025-03-22 15:49 | XMS_ITS | Encounter Summary ---
Author Organization [facility] Address [address] [place] [address] Care Team Providers Care Perpetual Inventory Clerk Name Role Phone Name, Milton VILLALOBOS Primary Care Provider Unavailabl e Encounter Details Date Type Department Care Team Description 07/26/2014 Business Doc Medical Records [address] [place] [id number] Abstract, Provider Social History Tobacco Use Types [...] on filedocumented in this encounter Care Teams Perpetual Inventory Clerk Relationship Specialty Start Date End Date Name, MD Milton PCP - General 04/12/09 documented as of this encounter
--- OUTSIDE RECORDS SUMMARY | 2025-03-22 15:49 | XMS_ITS | Clinical Summary ---
Author Organization [employer] Address [address] [facility] 7t [place] [address] Care Team Providers Care Supervisor Rework Name Role Phone Name, Milton VILLALOBOS Primary Care Provider [phone] Allergies Active Allergy Reactions Criticality Noted Date Comments Ibuprofen Other Low 04/13/2009 Stomach upset. Other reaction(s): UPSET STOMACH Oxycodone-Acetaminophen Itching High 06/27/2023 Medications amLODIPine (Norvasc) 2.5 MG tablet Take 1 tablet (2.5 mg) by mouth in the morning. 30 tablet 11 03/26/20 23 Active hydrOXYzine pamoate (Vistaril) 25 MG capsule Take 1 capsule (25 mg) by mouth every 12 (twelve) hours if needed for itching or anxiety. 30 capsule 03/26/20 23 Active acetaminophen (Tylenol 8 Hour Arthritis Pain) 650 MG ER tabletIndications: Neck pain on left side,Acute nonintractable headache, unspecified headache type,Arm pain, anterior, left Take 1 tablet (650 mg) by mouth every 8 (eight) hours if needed for mild pain. Do not crush, chew, or split. 30 tablet 05/08/20 23 Active cyclobenzaprine (Flexeril) 10 MG tablet Take 1 tablet (10 mg) by mouth 3 times daily for 10 days. 30 tablet 01/29/20 24 Active pantoprazole (ProtoNix) 40 MG EC tablet Take 1 tablet (40 mg) by mouth Once per day. 90 tablet 1 04/30/20 24 Active escitalopram (Lexapro) 5 MG tabletIndications: Mild major depression (CMS/HCC) Take 1 tablet (5 mg) by mouth Once per day. 30 tablet 11 08/19/20 24 025 Active D3-50 1.25 MG (44760 UT) capsule TAKE 1 CAPSULE BY MOUTH EVERY 30 DAYS 8 capsule 1 09/14/20 24 Active clonazePAM (KlonoPIN) 0.5 MG tabletIndications: Chronic anxiety Take 1 tablet (0.5 mg) by mouth Once per day. 30 tablet 11/30/20 24 Active atorvastatin (Lipitor) 40 MG tablet Take 1 tablet (40 mg) by mouth Once per day. 30 tablet 12/02/19 25 026 Active ezetimibe (Zetia) 10 MG tablet Take 1 tablet (10 mg) by mouth Once per day. 30 tablet 12/02/19 25 026 Active meloxicam (Mobic) 7.5 MG tablet TAKE 1 TABLET BY MOUTH ONCE PER DAY. 30 tablet 03/22/20 25 Active meloxicam (Mobic) 7.5 MG tablet Take 1 tablet (7.5 mg) by mouth Once per day. 30 tablet 02/22/20 25 025 Discontinued Active Problems Problem Noted Date Diagnosed Date History of right knee joint replacement 12/10/19 Overview (12/10/2023): Right knee replacement 12/2022 Cervical osteoarthritis 09/09/2023 09/09/20 23 On prednisone therapy 09/09/2023 09/09/2023 Post menopausal problems 09/09/2023 023 Temporal arteritis 09/09/2023 09/09/2023 Neck pain on left side 05/08/2023 Assessment & Plan (05/08/2023 2:12 PM EDT): Pt of Dr Kent here for a sick visit with c/o moderate to severe neck pain, described as intensity 7-8/10 with radiation to her left arm for over 1 week. No recent injury, no fever, no nausea, no vomiting. On exam there is evidence of muscle spasm. No neck rigidity, nothing to suggest meningismus Etiology ? Plan: Obtain plain films of cervical spine, NCS to rule out cervical radiculitis/beto Pt already taking Meloxicam, Added Acetaminophen 650 mg po q 8 hrs PRN. Given her age not a good candidate for muscle relaxants for now Acute nonintractable headache 05/08/2023 Assessment & Plan (05/08/2023 2:15 PM EDT): Pt with c/o severe occipital headache intensity 8/10 new onset, Neuro exam non focal. Pt tells me she recalls having a head trauma years ago for which she was never evaluated. Symptomatology suggestive of tensional headache but given her hx of previous trauma with no work up will proceed with a head CT. In the meantime will give Acetaminophen , will also obtain an ESR If CT negative might benefit from a low dose TCA Follow up with PCP after initial testing Arm pain, anterior, left 05/08/2023 Anxiety disorder 03/26/2023 Hypertensive disorder 03/26/2023 Mild major depression 03/26/2023 Osteoarthritis 03/26/2023 Prediabetes 03/26/2023 Chronic low back pain with bilateral sciatica Overview (03/26/2023): MRI 2016 IMPRESSION: 1. There are mild multilevel facet arthropathic changes as described above. 2. There are disc protrusions at L4-L5 and L5-S1 without definite impingement on the exiting nerve roots. 3. The filum terminale slightly is thickened and has fatty signal. Hypercholesterolemia 04/11/2016 Primary osteoarthritis of both knees 04/11/2016 Right knee DJD 08/18/2011 Psoriasis 06/13/2011 Hip pain 04/13/2009 Constipation 04/13/2009 Overview (03/26/2023): Chronic constipation Depression 04/13/2009 Overview (03/26/2023): Patient has chronic insommnia she has counselor and psychiatrist and [facility] Fatigue 04/13/2009 Knee pain 04/13/2009 Obesity 04/13/2009 Urine, incontinence, stress female 04/13/2009 Calcaneal spur 01/21/2008 Overview (03/26/2023): Seen by [facility]: Dx Plantar Fasciitis.+ calcification at Achilles Tendon. F/U with House Mover Helper; s/p steroid injection. Encounters Date Type Department Care Team Description 03/21/2025 Refill [facility] [address] [facility] [place] [address] NameMilton MD 02/21/2025 Telephone [facility] MEDICINE [address] [place] [address] Veronica Galindo, YORDAN 02/21/2025 Telephone [facility] [address] [facility] [place] [address] Veronica Galindo RN 02/21/2025 Orders Only [facility] [place] [address] Milton Kent MD 02/11/2025 Population Health Risk Score [facility] ([facility] Department [address] [place] [phone] Provider, Population Health Generic 01/19/2025 Telephone [facility] [place] [address] NameMilton MD from Last 3 Months Immunizations Name Administration Dates Next Due Influenza Whole 09/14/2007 Influenza injectable quadriv alent IIV4 with preservative 09/18/2016 Influenza, High Dose Seasona l, Preservative Free 09/10/2017 Influenza, IIV3, injectable 10/26/2014,1 12/18/2012,08/20/2012,2009 Tdap 05/19/2009 Social History Tobacco Use Types Packs/Day Years Used Date Smoking Tobacco: Never Passive Smoke Exposure: Never Smokeless Tobacco: Never Tobacco Cessation:Counseling Given: Not Answered Alcohol Use Standard Drinks/Week Comments Never 0 [...] Orientation Straight 06/05/2024 11 :47 PM EDT Last Filed Vital Signs Vital Sign Reading Time Taken Comments Blood Pressure 148/76 11/30/2024 11:38 AM EST Pulse 67 11/30/2024 11:38 AM EST Temperature 35.9 ??C (96.6 ??F) 11/30/2024 11:[address] Respiratory Rate 12 11/30/2024 11:38 AM EST Oxygen Saturation 97% 11/30/2024 11:38 AM EST Inhaled Oxygen Concentration - - Weight 77.2 kg (170 lb 3.2 oz) 11/30/2024 11:38 AM EST Height 157.5 cm (5' 2 ) 11/30/2024 11:38 AM EST Body Mass Index 31.13 11/30/2024 11:38 AM EST Plan of Treatment Upcoming Encounters Date Type Department Care Team (Late st Contact Info) Description 04/07/2025 11:15 AM EDT Office Visit [facility] MEDICINE [address] [place] [address] Name, MD Milton [address] [place] [address] Health Maintenance Due Date Last Done Comments Alcohol/Substance Use Screening 1960 Hepatitis C Screening 1966 Pneumococcal Vaccine: 50+ Years (1 of 1 - PCV) 1998 Zoster Vaccines (1 of 2) 1998 DTaP/Tdap/Td Vaccines (2 - Td or Tdap) 05/19/2019 05/19/2009 RSV Patients and Patients Aged 60 years or older (1 - 1-dose 75+ series) 2023 COVID-19 Vaccine (2 - season) 2024 02/25/2022 Influenza Vaccine (#1) 2024 7, 09/18/2016, 10/26/2014, Additional history exists Depression Screening 04/28/2025 04/28/2024, 04/28/20 24 SDOH Screening 04/28/2025 04/28/2024 Diabetes: Hemoglobin A1C 11/30/2025 024, 09/09/2023, 02/25/2022, Additional history exists Tobacco Screening 11/30/2025 11/30/2024 Lipid Panel 11/30/2029 11/30/2024, 08/01, 09/09/2023, Additional history exists HIB Vaccines Aged Out No longer eligi ble based on patient's age to complete this topic HPV Vaccines Aged Out No longer eligi ble based on patient's age to complete this topic Hepatitis A Vaccines Aged Out No long er eligible based on patient's age to complete this topic Hepatitis B Vaccines Aged Out No long er eligible based on patient's age to complete this topic IPV Vaccines Aged Out No longer eligi ble based on patient's age to complete this topic Meningococcal Vaccine Aged Out No sixto haroon eligible based on patient's age to complete this topic RSV under 20 months Aged Out No longe r eligible based on patient's age to complete this topic Rotavirus Vaccines Aged Out No longer eligible based on patient's age to complete this topic Procedures Procedure Name Priority Date/Time Associated Diagnosis Comments LIPID PANEL, STANDARD Routine 11/30/2024 12:28 PM EST Primary osteoarthritis of both knees On statin therapy Depression, unspecified depression type Prediabetes HEMOGLOBIN A1C Routine 11/30/2024 12:15 PM EST Primary osteoarthritis of both knees On statin therapy Depression, unspecified depression type Prediabetes from Last 3 Months or Most Recently Relevant to Health Maintenance Results * (ABNORMAL) Lipid Panel, Standard (11/30/2024 12:28 PM EST) Triglycerides 178(H) <150 mg/dL [facility] Comment:Desirable Triglyceri de: less than 150 mg/dLBorderline High Triglyceride 150-199 mg/dLHigh Triglyceride: 200-499 mg/dLVery High Triglyceride: greater than or equal to 5OO mg/dL Cholesterol 280(H) <200 mg/dL [facility] Comment:Desirable Cholestero l: less than 200 mg/dLBorderline High Cholesterol: 200-239 mg/dLHigh Cholesterol: greater than 239 mg/dL LDL Cholesterol Calculated 202(H) <100 mg/dL [facility] Comment:Desirable LDL: less than 100 mg/dLNear Optimal/Above Optimal LDL: 110- 129 mg/dLBorderline High LDL: 130-159 mg/dLHigh LDL: 160-189 mg/dLVery High LDL: greater than or equal to 190 mg/dL HDL Cholesterol 43 >40 mg/dL [facility] Comment:Desirable HDL: great er than 40 mg/dL Note: This HDL assay may give artificially low results in patients with liver disease. Blood Venous blood specimen / Unknown 11/30/2024 12:28 PM EST 11/30/2024 1:25 PM EST us Milton Name LAB BLOOD ORDERABLES Final Resul t [facility] [address] [place] [phone] * Hemoglobin A1c (11/30/2024 12:15 PM EST) Hemoglobin A1c 5.6 <6.0 % [facility] Comment:Hemoglobin A1C Refer ence Range Adults: 4.8 - 6.0 % Non diabetic: < 6.0 % Goal: < 7.0 %Additional Action Suggested: > 8.0 %Note: Hemoglobin A1c results are invalid for patients with abnormal amounts of HbF. Blood transfusions may impact the HbA1c concentration in the patient sample. Estimated Average Glucose 114 mg/dL [facility] Comment:eAG = Estimated ave rage glucose which is %A1C expressed asaverage glucose, using the formula of the [id number] Glucose study (ADAG), Diabetes Care, Vol.31,#8,Jul. 2007 Blood Venous blood specimen / Unknown 11/30/2024 12:15 PM EST 11/30/2024 1:25 PM EST us Milton Name LAB BLOOD ORDERABLES Final Resul t [facility] [address] [place] [address] [phone] from Last 3 Months or Most Recently Relevant to Health Maintenance Insurance MEDICARE [facility]ANDARD [facility] F[address] [place] [address] [phone] [place] [phone] [address] [place] [phone] Care Teams Supervisor Rework Relationship Specialty Start Date End Date Name, MD Milton [address] [place] [phone] PCP - General Family Medicine 04/11/16
--- OUTSIDE RECORDS SUMMARY | 2025-03-22 15:49 | XMS_ITS | Encounter Summary ---
Author Organization [facility] Address [address] [place] [address] Care Team Providers Care Roaster Helper Name Role Phone Milton Kent MD Primary Care Provider Unavailabl e Reason for Visit * Reason Onset Date Comments REFERRAL 06/16/2015 Encounter Details Date Type Department Care Team Description 06/16/2015 Telephone Adult Medicine [address] [address] Name, MD Milton REFERRAL Social History Tobacco Use Types Packs/Day Years Used Date Smoking Tobacco: Former Cigarettes 1 25 Smokeless Tobacco: Never Comments:15yrs Alcohol Use Standard Drinks/Week Comments No 0 (1 standard drink = 0.6 oz pur e alcohol) Sex Assigned at Date Recorded Not on file documented as of this encounter Miscellaneous Notes * Telephone Encounter - Haley Lang R.N. - 06/19/2015 9:11 AM EDT I left a message for the patient to return my call. * Telephone Encounter - Amaris Mathews MD - 06/19/2015 8:48 AM EDT Referral to [facility] placed * Telephone Encounter - Halye Lang R.N. - 06/16/2015 1:33 PM EDT Pt has had pain for about 2 mo after a fall, it appears she has seen dr mathews in rheumatology , hadMRI done ( pt had asked for cortisone) and PT referral was done , pt asking for ortho referral to [facility] * Telephone Encounter - Milton Kent MD - 06/16/2015 1:21 PM EDT See what she needs * Telephone Encounter - Martha Funes - 06/16/2015 12:08 PM EDT Caller requesting call back from provider:Milton Kent Is the caller the patient? YES If caller is not the patient, what is the callers name? N/A Callers relationship to patient? N/A If person calling is not the patient themselves, is there a verbal release in FYI or permanent comments for this person: YES Reason for call back: Patient wants to talk to Dr. Kent or nurse about going to [facility] for her knee pain Caller offered to speak with the nurse for assistance: YES Response: Patient offered to speak with nurse for assistance and patient agreed. Message forwarded to nurse. documented in this encounter Plan of Treatment Not on file documented as of this encounter Visit Diagnoses Not on filedocumented in this encounter Care Teams Roaster Helper Relationship Specialty Start Date End Date Milton Kent MD PCP - General 04/12/09 documented as of this encounter
--- OUTSIDE RECORDS SUMMARY | 2025-03-22 15:50 | XMS_ITS | Encounter Summary ---
Author Organization [employer] Address [address] [facility] [address]t [place] [address] Care Team Providers Care Publications Writer Name Role Phone Name, Milton VILLALOBOS Primary Care Provider [phone] Reason for Visit * Reason Comments Med Refill Encounter Details Date Type Department Care Team ([facility] st Contact Info) Description 12/02/2024 Refill [facility] MEDICINE [address] [place] [address] Name, MD Milton [address] [place] [address] Primary osteoarthritis of both knees; On statin therapy; Depression, unspecified depression type; Prediabetes Social History Tobacco Use Types Packs/Day Years [...] Description 04/07/2025 11:15 AM EDT Office Visit [facility] MEDICINE [address] [place] [address] NameMilton MD [address] [place] [address] documented as of this encounter Visit Diagnoses Diagnosis Primary osteoarthritis of both knees On statin therapy Depression, unspecified depression type Prediabetes Other abnormal glucose documented in this encounter Additional Health Concerns Assessment Noted Time PHQ-9 Depression Total Score: 13 024 2:13 PM EDT documented as of this encounter Care Teams Publications Writer Relationship Specialty Start Date End Date Milton Kent MD [address] [place] [address] PCP - General Family Medicine 04/11/16 documented as of this encounter
== END 2025-03-22 13:49 | disposition home or self-care (01) ==
PROVIDERS: PCP Internal Medicine Geriatric Medicine; Visit Provider Physician Assistant
DX: L03.119 Cellulitis of unspecified part of limb (principal)

== ENCOUNTER → 2025-03-22 13:22 | Outpatient (BNVA) | payer MEDICARE, MEDICAID, SELFPAY | PROVIDERS: PCP Internal Medicine Geriatric Medicine; Visit Provider Physician Assistant | DX: L03.115 Cellulitis of right lower limb (principal) | CPT/HCPCS: 99212 ==

== ENCOUNTER 2025-09-20 10:33 | Outpatient (REF) | payer OTHER, SELFPAY ==
--- OUTSIDE RECORDS SUMMARY | 2025-09-20 10:00 | XMS_ITS | Encounter Summary ---
Author Organization [employer] Address [address] [facility] 7t [place] [address] Care Team Providers Care Basting Puller Name Role Phone Name, Milton VILLALOBOS Primary Care Provider [phone] Reason for Visit * Reason Comments Follow-up Encounter Details Date Type Department Care Team (Latest Contact Info) Description 09/20/2025 10:00 AM EDT Office Visit [facility] MED[facility]INE [address] [place] [address] [phone] Name, MD Milton [address] [place] [address] Mild major depression (CMS/HCC) (Primary Dx); Primary osteoarthritis of both knees; Prediabetes; Hypercholesterolemia; Vitamin D deficiency; Hair loss; Vaccination refused by patient Social History Tobacco Use Types Packs/Day Years Used Date Smoking Tobacco: Former Cigarettes Passive Smoke Exposure: Past Smokeless Tobacco: Former Tobacco Cessation:Counseling Given: Not Answered Alcohol Use [...] Date Recorded Patient Health Questionnaire-2 Score 6 04/07/2025 Internet Access Answer Date Recorded Internet Access Q1 Yes 04/07/2025 Internet Access Q2 Not on file 04/07/2025 Comments Unknown Sex and Gender Information Value Date Recorded Sex Assigned at Female 09/30/2022 10:17 AM EDT Legal Sex Female 10:17 AM EDT Gender Identity Female 09/30/2022 10:17 AM EDT Sexual Orientation Straight 06/05/2024 11 :47 PM EDT documented as of this encounter Last Filed Vital Signs Vital Sign Reading Time Taken Comments Blood Pressure 132/74 09/20/2025 10:02 AM EDT Pulse 94 09/20/2025 10:02 AM EDT Temperature 35.6 C (96 F) 09/20/2025 10:02 AM EDT Respiratory Rate 12 09/20/2025 10:02 AM EDT Oxygen Saturation 96% 09/20/2025 10:02 AM EDT Inhaled Oxygen Concentration - - Weight 74.1 kg (163 lb 6.4 oz) 09/20/2025 10:02 AM EDT Height 154.9 cm (5' 1 ) 09/20/2025 10:02 AM EDT Body Mass Index 30.87 09/20/2025 10:02 AM EDT documented in this encounter Progress Notes * Milton Kent MD - 09/20/2025 10:00 AM EDT Subjective Patient ID: Cindy May is a 75 y.o. female who presents for Follow-up. Patient comes for a follow-up visit. She is accompanied by her daughter. She has several complaints. Patient complains of ongoing symptoms of depression and anxiety. She does not believe the Lexapro is helping much. She describes difficulties concentrating and she is forgetful. She is not interested in talking to a counselor. She would be willing to try a different antidepressant. She is not suicidal. Patient complains of chronic bilateral knee pain secondary to DJD. She is status post right total knee replacement. She was recommended to have left knee surgery that she will not do. She also has chronic low back pain related to DJD as well. No joint swelling or redness. Pain occurs daily and is precipitated by weightbearing activities. She uses acetaminophen and meloxicam with some symptomatic improvement. The patient tells me that she stopped using her statin and her ezetimibe. She is not using amlodipine either but her BP is normal today. She complains of several months of hair loss all over the scalp. She does not have any scalp itch and no areas of alopecia to suggest alopecia areata Review of Systems Constitutional: Negative for chills and fever. HENT: Negative for sore throat. Respiratory: Negative for cough, shortness of breath and wheezing. Cardiovascular: Negative for chest pain, palpitations and leg swelling. Gastrointestinal: Negative for abdominal pain. Musculoskeletal: Positive for arthralgias and back pain. Psychiatric/Behavioral: Positive for dysphoric mood and sleep disturbance. Negative for self-injuryand suicidal ideas. The patient is nervous/anxious. Objective Vitals: 09/20/25 1002 BP: 132/74 BP Location: Left arm Patient Position: Sitting BP Cuff Size: Adult Pulse: 94 Resp: 12 Temp: 96 ??F (35.6 ??C) TempSrc: Temporal SpO2: 96% Weight: 163 lb 6.4 oz (74.1 kg) Height: 5' 1 (1.549 m) Physical Exam Constitutional: Appearance: Normal appearance. Cardiovascular: Rate and Rhythm: Normal rate and regular rhythm. Heart sounds: No murmur heard. No gallop. Pulmonary: Effort: Pulmonary effort is normal. No respiratory distress. Breath sounds: Normal breath sounds. No wheezing. Musculoskeletal: General: No swelling. Right knee: Decreased range of motion. Tenderness present. Left knee: Decreased range of motion. Tenderness present. Right lower leg: No edema. Left lower leg: No edema. Neurological: Mental Status: She is alert. Assessment/Plan Diagnoses and all orders for this visit: Mild major depression (CMS/[facility]) Comments: Patient is not suicidal. She is not interested in referral to behavioral health. She does not want to have a counselor. I will discontinue the Lexapro that has not been helpful. I recommended starting Cymbalta. This medication is to help with depression and her chronic musculoskeletal pain. Follow-up in 8 weeks. Orders: - DULoxetine (Cymbalta) [address] capsule; Take 1 capsule (30 mg) by mouth Once per day for 7 days, THEN 2 capsules (60 mg) Once per day. Do not crush or chew. - TSH W/Reflex to FT4; Future Primary osteoarthritis of both knees Comments: Secondary to DJD. She is not interested in referral back to orthopedics. I will refill the meloxicam and acetaminophen to use as needed. See above. Orders: - meloxicam (Mobic) 7.5 MG tablet; Take 1 tablet (7.5 mg) by mouth Once per day. - acetaminophen (Tylenol 8 Hour Arthritis Pain) 650 MG ER tablet; Take 1 tablet (650 mg) by mouth every 8 (eight) hours if needed for mild pain. Do not crush, chew, or split. - DULoxetine (Cymbalta) [address] capsule; Take 1 capsule (30 mg) by mouth Once per day for 7 days, THEN 2 capsules (60 mg) Once per day. Do not crush or chew. - Comprehensive Metabolic Panel; Future - Hemoglobin A1c; Future Prediabetes Comments: I recommended patient to avoid sweets and soda and check the fasting blood work listed below. She has not used her statin in several months. She also stopped vitamin D supplementation. Hypercholesterolemia - Lipid Panel, Standard; Future Vitamin D deficiency - Vitamin D, 25-Hydroxy, Total, Immunoassay; Future Hair loss Comments: I recommended to check her thyroid function testing. She does not have exam to suggest alopecia areata. I suspect telogen effluvium. Orders: - CBC auto differential; Future - TSH W/Reflex to FT4; Future Vaccination refused by patient Comments: Patient refused any vaccination today. Other orders - I refilled topical mometasone (Elocon) 0.1 % ointment; Apply topically Once per day to use for psoriasis rash. Future Appointments Date Time Provider Department Center 12/23/2025 10:15 AM Milton Kent MD [facility] documented in this encounter Plan of Treatment Upcoming Encounters Date Type Department Care Team (Late st Contact Info) Description 12/23/2025 10:15 AM EST Office Visit [facility] [address] [place] [address] Name, MD Milton [address] [place] [address] Scheduled Orders Name Type Priority Associated Diagnoses Orde r Schedule CBC auto differential Lab Routine Hair loss Expected: 09/20/2025 (Approximate), Expires: 09/20/2026 Comprehensive Metabolic Panel Lab Routine Primary osteoarthritis of both knees Expected: 09/20/2025 (Approximate), Expires: 09/20/2026 Lipid Panel, Standard Lab Routine Hypercholesterolemia Expected: 09/20/2025 (Approximate), Expires: 09/20/2026 Hemoglobin A1c Lab Routine Primary osteoarthritis of both knees Expected: 09/20/2025 (Approximate), Expires: 09/20/2026 TSH W/Reflex to FT4 Lab Routine Mild major depression (CMS/HCC) Hair loss Expected: 09/20/2025 (Approximate), Expires: 09/20/2026 Vitamin D, 25-Hydroxy, Total, Immunoassay Lab Routine Vitamin D deficiency Expected: 09/20/2025 (Approximate), Expires: 09/20/2026 documented as of this encounter Visit Diagnoses Diagnosis Mild major depression (CMS/HCC)- Primary Major depressive disorder, single episode, mild Primary osteoarthritis of both knees Prediabetes Other abnormal glucose Hypercholesterolemia Pure hypercholesterolemia Vitamin D deficiency Hair loss Unspecified alopecia Vaccination refused by patient documented in this encounter Additional Health Concerns Assessment Noted Time PHQ-9 Depression Total Score: 13 024 2:13 PM EDT documented as of this encounter Care Teams Basting Puller Relationship Specialty Start Date End Date Name, [place] [address] PCP - General Family Medicine 04/11/16 documented as of this encounter
--- OUTSIDE RECORDS SUMMARY | 2025-09-20 12:36 | XMS_ITS | Encounter Summary ---
Author Organization [employer] Address [address] [facility] 7t [place] [address] Care Team Providers Care Director Sterile Processing Name Role Phone Name, Milton VILLALOBOS Primary Care Provider [phone] Encounter Details Date Type Department Care Team (Latest Contact Info) Description 09/20/2025 Travel Social History Tobacco Use Types Packs/Day Years Used Date Smoking Tobacco: Former Cigarettes Passive Smoke Exposure: Past Smokeless Tobacco: Former Alcohol Use Standard Drinks/Week Comments Never 0 [...] Description 12/23/2025 10:15 AM EST Office Visit [facility] [address] [place] [phone] Name, MD Milton [address] [place] [phone] documented as of this encounter Visit Diagnoses Not on filedocumented in this encounter Additional Health Concerns Assessment Noted Time PHQ-9 Depression Total Score: 13 024 2:13 PM EDT documented as of this encounter Care Teams Director Sterile Processing Relationship Specialty Start Date End Date Name, MD Milton [address] [place] [phone] PCP - General Family Medicine 04/11/16 documented as of this encounter
--- OUTSIDE RECORDS SUMMARY | 2025-09-20 12:36 | XMS_ITS | Encounter Summary ---
Author Organization [employer] Address [address] [facility] 7t [place] [address] Care Team Providers Care Brake Repair Mechanic Name Role Phone Name, Milton VILLALOBOS Primary Care Provider [phone] Reason for Visit * Reason Comments Med Refill Encounter Details Date Type Department Care Team ([facility] st Contact Info) Description 12/02/2024 Refill [facility] [address] [place], [place] [phone] Name, MD Milton [address] [place] [address] Primary osteoarthritis of both knees; On statin [...] Description 12/23/2025 10:15 AM EST Office Visit [facility] [address] [place] [phone] Name, MD Milton [address] [place] [phone] documented as of this encounter Visit Diagnoses Diagnosis Primary osteoarthritis of both knees On statin therapy Depression, unspecified depression type Prediabetes Other abnormal glucose documented in this encounter Additional Health Concerns Assessment Noted Time PHQ-9 Depression Total Score: 13 024 2:13 PM EDT documented as of this encounter Care Teams Brake Repair Mechanic Relationship Specialty Start Date End Date NameMilton MD [address] [place] [phone] PCP - General Family Medicine 04/11/16 documented as of this encounter
--- OUTSIDE RECORDS SUMMARY | 2025-09-20 12:36 | XMS_ITS | Encounter Summary ---
Author Organization [employer] Address [address] [facility] 7t [place] [address] Care Team Providers Care Freelance Translator Name Role Phone Name, Milton VILLALOBOS Primary Care Provider [phone] Reason for Visit * Reason Onset Date Comments CHARTPREP 09/19/2025 Encounter Details Date Type Department Care Team ([facility] Contact Info) Description 09/19/2025 Telephone [facility] MED[facility]INE [address] [place], [place] [phone] Name, MD Milton [address] [place] [address] CHARTPREP Social History Tobacco Use Types Packs/Day Years [...] encounter Miscellaneous Notes * Telephone Encounter - Nicole Parsons MA - 09/19/2025 3:16 PM EDT Chart Prep Labs: done Images: done Referrals: not applicable Vaccines due: Covid, Flu, PCV20, Tdap, RSV, and Zoster Screenings: Hep C screening Overdue care gaps: Oral health screening documented in this encounter Plan of Treatment Upcoming Encounters Date Type Department Care Team (Late st Contact Info) Description 12/23/2025 10:15 AM EST Office Visit [facility] MEDICINE [address] [place] [phone] Name, MD Milton [address] [place] [address] documented as of this encounter Visit Diagnoses Not on filedocumented in this encounter Additional Health Concerns Assessment Noted Time PHQ-9 Depression Total Score: 13 024 2:13 PM EDT documented as of this encounter Care Teams Freelance Translator Relationship Specialty Start Date End Date NameMilton MD [address] [place] [phone] PCP - General Family Medicine 04/11/16 documented as of this encounter
--- OUTSIDE RECORDS SUMMARY | 2025-09-20 12:36 | XMS_ITS | Clinical Summary ---
Author Organization [employer] Address [address] [place] [address] 7t [place] [address] Care Team Providers Care Chemical Worker Name Role Phone Name, Milton VILLALOBOS Primary Care Provider [phone] Allergies Active Allergy Reactions Criticality Noted Date Comments Ibuprofen Other Low 04/13/2009 Stomach upset. Other reaction(s): UPSET STOMACH Oxycodone-Acetaminophen Itching High 06/27/2023 Medications meloxicam (Mobic) 7.5 MG tabletIndications :Primary osteoarthritis of both knees Take 1 tablet (7.5 mg) by mouth Once per day. 30 tablet 09/20/20 25 Active acetaminophen (Tylenol 8 Hour Arthritis Pain) 650 MG ER tabletIndications :Primary osteoarthritis of both knees Take 1 tablet (650 mg) by mouth every 8 (eight) hours if needed for mild pain. Do not crush, chew, or split. 30 tablet 09/20/20 25 Active DULoxetine (Cymbalta) [address] capsuleIndication s:Mild major depression (CMS/HCC),Primary osteoarthritis of both knees Take 1 capsule (30 mg) by mouth Once per day for 7 days, THEN 2 capsules (60 mg) Once per day. Do not crush or chew. 67 capsule 2 09/20/20 25 2024 Active mometasone (Elocon) 0.1 % ointment Apply topically Once per day. 45 g 2 09/20/20 25 2025 Active amLODIPine (Norvasc) 2.5 MG tablet Take 1 tablet (2.5 mg) by mouth in the morning. 30 tablet 11 03/26/20 23 2024 Discontinued(T herapy completed) hydrOXYzine pamoate (Vistaril) 25 MG capsule Take 1 capsule (25 mg) by mouth every 12 (twelve) hours if needed for itching or anxiety. 30 capsule 03/26/20 23 2024 Discontinued(T herapy completed) acetaminophen (Tylenol 8 Hour Arthritis Pain) 650 MG ER tabletIndications :Neck pain on left side,Acute nonintractable headache, unspecified headache type,Arm pain, anterior, left Take 1 tablet (650 mg) by mouth every 8 (eight) hours if needed for mild pain. Do not crush, chew, or split. 30 tablet 05/08/20 23 2024 Discontinued(R eorder (will not trigger notification to Pharmacy)) cyclobenzaprine (Flexeril) 10 MG tablet Take 1 tablet (10 mg) by mouth 3 times daily for 10 days. 30 tablet 01/29/20 24 2024 Discontinued(T herapy completed) pantoprazole (ProtoNix) 40 MG EC tablet Take 1 tablet (40 mg) by mouth Once per day. 90 tablet 1 04/30/20 24 2024 Discontinued(T herapy completed) D3-50 1.25 MG (36135 UT) capsule TAKE 1 CAPSULE BY MOUTH EVERY 30 DAYS 8 capsule 1 09/14/20 24 2024 Discontinued(T herapy completed) clonazePAM (KlonoPIN) 0.5 MG tabletIndications :Chronic anxiety Take 1 tablet (0.5 mg) by mouth Once per day. 30 tablet 11/30/20 24 2024 Discontinued(T herapy completed) atorvastatin (Lipitor) 40 MG tablet Take 1 tablet (40 mg) by mouth Once per day. 30 tablet 11 12/02/19 25 2024 Discontinued(T herapy completed) ezetimibe (Zetia) 10 MG tablet Take 1 tablet (10 mg) by mouth Once per day. 30 tablet 11 12/02/19 25 2024 Discontinued(T herapy completed) escitalopram (Lexapro) 5 MG tabletIndications :Mild major depression (CMS/HCC) TAKE 1 TABLET BY MOUTH EVERY DAY 90 tablet 3 07/13/20 25 2024 Discontinued(T herapy completed) meloxicam (Mobic) 7.5 MG tablet TAKE 1 TABLET BY MOUTH ONCE PER DAY. 30 tablet 08/05/20 25 2024 Discontinued meloxicam (Mobic) 7.5 MG tablet TAKE 1 TABLET BY MOUTH ONCE PER DAY. 30 tablet 09/06/20 25 2024 Discontinued(R eorder (will not trigger notification to Pharmacy)) Active Problems Problem Noted Date Diagnosed Date Carpal tunnel syndrome of left wrist 04/06/2025 Overview (04/06/2025): 05/2023 mild on EMG Tinnitus of left ear 04/06/2025 Vertigo 04/06/2025 Vitamin D deficiency 04/06/2025 Left arm pain 04/06/2025 Left anterior knee pain 04/06/2025 Osteoarthritis of knees, bilateral 04/06/2025 Temporal arteritis syndrome 04/06/2025 Overview (04/06/2025): BERTRAND, myalgias 05/2023. Better on prednisone; TA bx negaitve 05/2023 History of right knee joint replacement 12/10/19 24 Overview (12/10/2023): Right knee replacement 12/2022 Cervical osteoarthritis 09/09/2023 09/09/20 23 On prednisone therapy 09/09/2023 09/09/2023 Post menopausal problems 09/09/2023 023 Neck pain on left side 05/08/2023 Assessment [...] Pt with c/o severe occipital headache intensity 07/10 new onset, Neuro exam non focal. Pt [...] 04/13/2009 Constipation 04/13/2009 Overview (03/26/2023): Chronic constipation Knee pain 04/13/2009 Obesity 04/13/2009 Urine, incontinence, stress female 04/13/2009 Calcaneal spur 01/21/2008 Overview (03/26/2023): Seen by [facility]: Dx Plantar Fasciitis.+ calcification at Achilles Tendon. F/U with Design Editor; s/p steroid injection. Resolved Problems Problem Noted Date Diagnosed Date Resolved Date Rash 04/06/2025 09/20/2025 Dizziness 04/06/2025 09/20/2025 Anxiety 04/06/2025 09/20/2025 Headache 04/06/2025 09/20/2025 Temporal arteritis (CMS/HCC) 09/09/2023 09/09/2023 09/20/2025 Depression 04/13/2009 09/20/2025 Overview (03/26/2023): Patient has chronic insommnia she has counselor and psychiatrist and [facility] Fatigue 04/13/2009 09/20/2025 Encounters Date Type Department Care Team Description 09/20/2025 10:00 AM EDT Office Visit [facility] [address] [place] [address] NameMilton MD Mild major depression (CMS/HCC) (Primary Dx); Primary osteoarthritis of both knees; Prediabetes; Hypercholesterolemia; Vitamin D deficiency; Hair loss; Vaccination refused by patient 09/20/2025 Travel 09/19/2025 Telephone [facility] [address] [place] [address] Milton Kent MD CHARTPREP 09/05/2025 Refill [facility] [address] [place] [address] Milton Kent MD 08/05/2025 Refill [facility] [address] [place] [address] Milton Kent MD 07/12/2025 Refill [facility] [address] [place] [address] Milton Kent MD Mild major depression (CMS/HCC) 07/07/2025 Telephone [facility] [address] [place] [address] Gail Silva MA august recalls 07/07/2025 Refill [facility] [address] [place] [address] Milton Kent MD from Last 3 Months Immunizations Immunization Administration Dates Next Due Influenza Whole 09/14/2007 [...] Mass Index 30.87 09/20/2025 10:02 AM EDT Plan of Treatment Upcoming Encounters Date Type Department Care Team (Late st Contact Info) Description 12/23/2025 10:15 AM EST Office Visit [facility] [address] [place] [address] Name, MD Milton [address] [place] [address] Health Maintenance Due Date Last Done Comments Hepatitis C Screening 1968 Pneumococcal Vaccine: 50+ Years (1 of 1 - PCV) 1998 Zoster Vaccines (1 of 2) 1998 DTaP/Tdap/Td Vaccines (2 - Td or Tdap) 05/19/2019 05/19/2009 RSV Patients and Patients Aged 60 years or older (1 - 1-dose 75+ series) 2023 COVID-19 Vaccine (2 - 2024- season) 2025 02/25/2022 Influenza Vaccine (#1) 2025 7, 09/18/2016, 10/26/2014, Additional history exists Depression Monitoring 10/08/2025 04/07/2025, 024 Alcohol/Substance Use Screening 04/07/2026 04/07/2025 Diabetes: Hemoglobin A1C 04/07/2026 025, 11/30/2024, 09/09/2023, Additional history exists SDOH Screening 04/07/2026 04/07/2025 Tobacco Screening 09/20/2026 09/20/2025 Lipid Panel 11/30/2029 11/30/2024, 08/01, 09/09/2023, Additional [...] patient's age to complete this topic Meningococcal B Vaccine Aged Out No l onger eligible based on patient's age to complete [...] Procedure Name Priority Date/Time Associated Diagnosis Comments POCT GLYCATED HEMOGLOBIN, TOTAL Routine 04/07/2025 11:07 AM EDT Prediabetes LIPID PANEL, STANDARD Routine 11/30/2024 12:28 PM EST Primary osteoarthritis of both knees On statin therapy Depression, unspecified depression type Prediabetes from Last 3 Months or Most Recently Relevant to Health Maintenance Results * POCT HGB A1C (04/07/2025 11:07 AM EDT) Hemoglobin A1C 5.3 4.0 - 6.0 % QC Media Lot # [id number] Lot# Expiration Date Blood 04/07/2025 11:0 7 AM EDT us Milton Name POINT OF CARE TEST ENTER/EDIT OR DERABLES Final Result * (ABNORMAL) Lipid Panel, Standard (11/30/2024 12:28 PM EST) Triglycerides 178(H) <150 mg/dL [facility] Comment:Desirable Triglyceri de: less than 150 mg/dLBorderline High Triglyceride 150-199 mg/dLHigh Triglyceride: 200-499 mg/dLVery High Triglyceride: greater than or equal to 5OO mg/dL Cholesterol 280(H) <200 mg/dL [facility] Comment:Desirable Cholestero l: less than 200 mg/dLBorderline High Cholesterol: 200-239 mg/dLHigh Cholesterol: greater than 239 mg/dL LDL Cholesterol Calculated 202(H) <100 mg/dL [facility] Comment:Desirable LDL: less than 100 mg/dLNear Optimal/Above Optimal LDL: 110- 129 mg/dLBorderline High LDL: 130-159 mg/dLHigh LDL: 160-189 mg/dLVery High LDL: greater than or equal to 190 mg/dL HDL Cholesterol 43 >40 mg/dL [facility] Comment:Desirable HDL: great er than 40 mg/dL Note: This HDL assay may give artificially low results in patients with liver disease. Blood Venous blood specimen / Unknown 11/30/2024 12:28 PM EST 11/30/2024 1:25 PM EST us Milton Kent MD LAB BLOOD ORDERABLES Final Resul t [facility] [address] [place] [address] [phone] from Last 3 Months or Most Recently Relevant to Health Maintenance Insurance [facility] [employer] (O D-SNP) [place] [id number] Care Teams Chemical Worker Relationship Specialty Start Date End Date Name, MD Milton [address] [place] [phone] PCP - General Family Medicine 04/11/16
--- OUTSIDE RECORDS SUMMARY | 2025-09-20 12:36 | XMS_ITS | Encounter Summary ---
Author Organization [employer] Address [address] [facility] 7t [place] [address] Care Team Providers Care Genetics Teacher Name Role Phone Name, Milton VILLALOBOS Primary Care Provider [phone] Encounter Details Date Type Department Care Team ([facility] st Contact Info) Description 12/19/2023 Telephone [facility] MEDICINE [address] [place], [place] [phone] Name, MD Milton [address] [place] [address] Social History Tobacco Use Types Packs/Day Years [...] t he electric, gas, oil or water [employer] threatened to shut off services in your [...] medication. El advised medication was sent to [facility] in [place] on [address] and pt was not aware. Pizzamaker called pharmacy to verify script was there and was advised by pharmacy pt picked up a 90 day supply on 11/03. Pizzamaker advised pt and pt states she does not have the medication. documented in this encounter Plan of Treatment Upcoming Encounters Date Type Department Care Team (Late st Contact Info) Description 12/23/2025 10:15 AM EST Office Visit [facility] MEDICINE [address] [place] [phone] Name, MD Milton [address] [place] [phone] documented as of this encounter Visit Diagnoses Not on filedocumented in this encounter Additional Health Concerns Assessment Noted Time PHQ-9 Depression Total Score: 6 03/26/20 23 10:52 AM EDT documented as of this encounter Care Teams Genetics Teacher Relationship Specialty Start Date End Date Name, MD Milton [address] [place] [phone] PCP - General Family Medicine 04/11/16 documented as of this encounter
[2025-09-20 13:22] LABS: MANUAL DIFF FLAG NO
[2025-09-20 13:58] LABS: Hematocrit 38.2 % (37.0-47.0); Hemoglobin 12.6 g/dl (12.0-16.0); Imm Gran Abs Auto 0.01 X10*3/uL (0.00-0.03); Imm Gran Pct Auto 0.2 % (0.0-0.4); Lymphocytes Absolute Auto 1.7 X10*3/uL (1.2-4.9); Mean Corpuscular HGB Conc 33.0 g/dl (31.0-35.0); Mean Corpuscular Hemoglobin 29.7 pg (27.0-33.0); Mean Corpuscular Volume 90.1 fL (80.0-98.0); NRBC Abs Auto 0.000 X10*3/uL (0.0-0.012); NRBC Pct Auto 0.0 /100WBC (0.0-0.2); Platelet Count 359 X10*3/uL (160-400); Red Blood Count 4.24 X10*6/uL (4.20-5.50); White Blood Count 6.6 X10*3/uL (4.8-10.8)
[2025-09-20 17:33] LABS: Alanine Aminotransferase 17 U/L (0-31); Albumin Level 4.5 g/dL (3.5-5.0); Alkaline Phosphatase 129 U/L (39-117); Anion Gap 10 (12-20); Aspartate Amino Transferase 28 U/L (5-31); Blood Urea Nitrogen 22 mg/dL (9-16); Calcium 9.8 mg/dL (8.4-10.2); Carbon Dioxide 24 mmol/L (22-29); Chloride 114 mmol/L (96-108); Cholesterol 258 mg/dL (<200); Estimated Glomerular Filt Rate > 60; HDL Cholesterol 49 mg/dL (>40); Potassium 4.5 mmol/L (3.3-5.1); Sodium 143 mmol/L (135-145); Total Protein 7.8 g/dL (6.5-8.0); Triglycerides 129 mg/dL (<150)
== END 2025-09-20 10:34 | disposition home or self-care (01) ==
LOC: HO.HHCL 10:33
PROVIDERS: PCP Internal Medicine Geriatric Medicine; Visit Provider Internal Medicine Geriatric Medicine
DX: M17.0 Bilateral primary osteoarthritis of knee (principal); E78.00 Pure hypercholesterolemia, unspecified; F32.0 Major depressive disorder, single episode, mild; L65.9 Nonscarring hair loss, unspecified; E55.9 Vitamin D deficiency, unspecified; I10 Essential (primary) hypertension; Z13.1 Encounter for screening for diabetes mellitus
CPT/HCPCS: 36415; 80053; 80061; 82306; 83036; 84443; 85025